=== PATIENT | male | born 1960 | race Caucasian/White ===

== ENCOUNTER 2025-01-02 21:10 | Observation (INO) | payer OTHER, SELFPAY ==
--- NOTE | ~2025-01-02 | XR_ITS ---
CLINICAL HISTORY: Fall, left knee pain R O fracture 2 view left knee Comparison: None Findings: No fractures or dislocations. Tricompartmental osteoarthritis. No joint effusion. No radiopaque foreign body. IMPRESSION: 1. No acute findings. This document has been electronically signed by: Teresa Turk MD on 01/02/2025 22:42:32
--- NOTE | ~2025-01-02 | XR_ITS ---
CLINICAL HISTORY: Fall, right knee to foot pain, R O fracture 2 view right tibia-fibula Comparison: None Findings No fractures or dislocations. No joint effusion. Osteoarthritis of the knee and tibiotalar joint. IMPRESSION: No acute fracture. This document has been electronically signed by: Teresa Turk MD on 01/02/2025 22:42:47
--- NOTE | ~2025-01-02 | XR_ITS ---
CLINICAL HISTORY: Fall, right foot pain, R O fracture 3 view right foot Comparison: None Findings: Bones intact. No dislocations. Large plantar calcaneal spur and Achilles enthesopathy. Soft tissue swelling over the metatarsals. IMPRESSION: 1. No acute osseous injury. This document has been electronically signed by: Teresa Turk MD on 01/02/2025 22:40:56
--- NOTE | ~2025-01-02 | XR_ITS ---
CLINICAL HISTORY: Fall down stairs case, right chest ecchymosis, R 0 --- Additional Notes or Special Instructions: Pneumothorax, rib fracture 1 view chest x-ray Comparison: None Findings: The lungs are clear. No large effusion or pneumothorax. Cardiomegaly. No acute fracture. IMPRESSION: 1. No acute cardiopulmonary findings. 2. Cardiomegaly. This document has been electronically signed by: Teresa Turk MD on 01/02/2025 22:37:11
--- NOTE | ~2025-01-02 | XR_ITS ---
EXAMINATION: XR RIBS, LEFT CLINICAL INFORMATION: fall, left side rib pain COMPARISON: None available. TECHNIQUE: PA chest, and 3 views of the left ribs were obtained. FINDINGS: There is cardiac enlargement. Widening of the vascular pedicle is likely secondary to technique and abundant mediastinal fat. The aorta is normal in contour with mural calcifications. Lungs demonstrate opacity in the left apex, not seen previously. There is minimal linear atelectasis or scarring in the left costophrenic sulcus. Lungs otherwise clear. There is no pneumothorax. Dedicated rib views demonstrate no definite displaced rib fracture. There are degenerative changes in the left shoulder joints and spine. XR/XR ribs LT min 3V w CXR1V IMPRESSION: 1. Cardiomegaly. 2. Opacity in the left apex, for which pneumonia is a consideration, among other etiologies. Follow-up imaging recommended to ensure resolution. 3. No pneumothorax or effusion. 4. No definite rib fracture or focal rib abnormality. Electronically signed by: Zay Nix MD 01/04/2025 01:41 PM EDT
--- NOTE | ~2025-01-02 | CT_ITS ---
CLINICAL HISTORY: Fall down spiral staircase, neck pain, rule out fr CT cervical spine without contrast Comparison: None Findings: Motion artifact in the lower cervical spine. Straightening of the cervical spine is likely positional. Bulky bridging anterior osteophytes from C4 through C7. Fusion of the C6 and C7 vertebral bodies. No acute fractures or dislocations. IMPRESSION: 1. No acute osseous injury. This document has been electronically signed by: Teresa Turk MD on 01/02/2025 22:44:57
--- NOTE | ~2025-01-02 | CT_ITS ---
CLINICAL HISTORY: Fall down spiral staircase, head injury, R O fract --- Additional Notes or Special Instructions: Bleed CT head without contrast Comparison: None Findings: No intra-axial mass, midline shift, hydrocephalus, or acute hemorrhage. Mild volume loss. Intracranial atherosclerosis. Mucosal thickening in the maxillary sinuses. The orbits are within normal limits. Left posterior scalp hematoma. No skull fracture. IMPRESSION: 1. No acute intracranial findings. 2. Left posterior scalp hematoma. This document has been electronically signed by: Teresa Turk MD on 01/02/2025 22:46:01
[2025-01-02 21:23] VITALS: BP 119/50; PULSE 111; RESP 16; TEMP 36.3; O2SAT 94
--- NOTE | 2025-01-02 21:25 | ED_ITS ---
HPI - Fall General Chief Complaint: Fall Stated Complaint: fall w/ headstrike, takes apirin Time Seen by Provider: 01/02/25 21:24 Source: patient Mode of arrival: EMS Limitations: no limitations History of Present Illness ED Provider: Dr. Patrick Reyna HPI Narrative: 64-year-old male with a history of diabetes mellitus, hyperlipidemia, atrial fibrillation-noncompliant with medications only takes aspirin, who presents emergency department for evaluation of trip and fall down a spiral staircase. Patient states that he has a wooden spiral staircase at home. He states he got to the top of the staircase and had difficulty lifting his leg which caused him to trip and fall backwards down the staircase. He states that he got residential down the staircase (a proximally 5 steps down) and then got stuck. He thinks that he hit his head and chest as well as his legs. He denied any loss of consciousness. Currently is denying headache or neck pain. He states that he was having pain from his right calf to his ankle which is constant in his 8/10. He also has left knee pain which is 4/10. The patient was [id number] used a saw to cut the struts off the stairway in order to free him from the staircase. The patient was then able to slide down to the bottom floor and was then brought to emergency department by ambulance. Patient states he was not stood up since the accident secondary to his lower extremity pain. Patient believes his last tetanus shot was greater than 5 years prior. States that he was not ill in any way prior to the slip and fall down the stairs. Related Data Home Medications ?Medication ?Instructions ?Recorded ?Confirmed No Known Home Meds 01/03/25 01/03/25 Allergies Allergy/AdvReac Type Severity Reaction Status Date / Time No Known Allergies Allergy Verified 01/02/25 21:36 Review of Systems 2 Review of Systems: Yes all other systems are reviewed and are negative PMFSH Past Medical History [facility] Narrative: Social history: The patient was in his is here in the emergency department with him. The patient denied tobacco use. He states that he drinks 5 shots of vodka per day and he last drank at 19:00 hours. He denies drug use. Medical History Diabetes mellitus Hyperlipidemia Hypertension Obesity Alcohol use disorder Social History Social History Household Members: Spouse Housing: Apartment Housing Other:: in law apartment Do you presently have visiting nurse or other home services: No Patient Tobacco Use Status: Former Tobacco user service: No Physical Exam 2 Vital Signs: Vital Signs: Last Vital Signs Temp 97.9 F 01/04/25 11:20 Pulse 104 H 01/04/25 11:20 Resp 20 01/04/25 11:20 BP 145/88 H 01/04/25 11:20 Pulse Ox 94 01/04/25 11:20 O2 Del Method Room Air 01/04/25 11:20 BMI result Body Mass Index 51.9 Vital signs revealed an elevated heart rate of 111 otherwise unremarkable Exam: General: Awake, alert in no distress, weight 173.6 kg, elevated BMI 51.9 kg per m2 Head: Normocephalic, atraumatic EENT: PERRL, Lids normal, sclera normal, conjunctiva normal, nose normal , ears normal, throat without erythema or exudates Neck: Supple, no adenopathy Lung: breath sounds symmetric, no wheezing, rales or rhonchi Chest: symmetric movement, ecchymosis to right anterior chest with minimal tenderness palpation of this area, Heart: regular rate and rhythm, normal S1, S2 no murmurs or rubs Abdomen: soft, non-tender, nondistended, normal bowel sounds Back: No tenderness with palpation of his lumbar vertebrae and no localizing point tenderness, he does have tenderness with palpation of the paraspinal muscles in the lumbar sacral area, no abrasions or ecchymosis noted Extremities: Patient has linear skin abrasions to his right lateral lower extremity from the knee to residential down the calf and similar skin abrasion to the left leg, log-rolling of the hips bilaterally reveal no discomfort, patient does have pain with palpation of his left knee with no obvious deformity and he also has pain with palpation over the right tib-fib area. Both extremities have chronic dermatitis/erythema with trace pitting edema symmetrically. Neuro: Awake, alert, oriented, normal speech, cranial nerves intact, moves all extremities symmetrically Psych: Pleasant, cooperative Medications Administered Generic Name Dose Route Start Last Admin Trade Name Freq PRN Reason Stop Dose Admin Cyclobenzaprine HCl 10 mg 01/03/25 21:00 01/03/25 20:14 Cyclobenzaprine Hcl 10 Mg Tablet PO 10 mg BEDTIME SHERLEY Administration Insulin Human Lispro 0 unit 01/03/25 07:30 01/04/25 11:42 Insulin Lispro 100 Unit/Ml 3 Ml Vial SUBCUT 2 unit QIDACHS [facility] Administration Protocol Metoprolol Succinate 25 mg 01/03/25 13:40 01/04/25 09:18 Metoprolol Succinate Er 25 Mg Tab.Er.24h PO 25 mg DAILY SHERLEY Administration Protocol Morphine Sulfate 2 mg 01/03/25 12:09 01/04/25 09:17 Morphine Sulfate 4 Mg/Ml Cartridge IVPUSH 2 mg Q4H PRN Administration Pain, Severe (Pain Scale 7-10) Protocol Oxycodone HCl 5 mg 01/03/25 05:50 01/04/25 11:41 Oxycodone Hcl Immed Release 5 Mg Tablet PO 5 mg Q6H [facility] Administration Sodium Chloride 3 ml 01/03/25 08:00 01/04/25 09:18 0.9 % Sodium Chloride Flush 3 Ml Syringe IVFLUSH 3 ml QSHIFT [facility] Administration Thiamine HCl 100 mg 01/03/25 09:00 01/04/25 09:18 Thiamine Hcl 100 Mg Tablet PO 100 mg DAILY [facility] Administration Discontinued Medications Generic Name Dose Route Start Last Admin Trade Name Alfonzoq PRN Reason Stop Dose Admin Cyclobenzaprine HCl 10 mg 01/03/25 01:42 01/03/25 01:54 Cyclobenzaprine Hcl 10 Mg Tablet PO 01/03/25 01:43 10 mg ONCE ONE Administration Diphtheria/Tetanus/Acell Pertussis 0.5 ml 01/02/25 21:53 01/02/25 22:25 Diphth,Pertus(Acell),Tet Adult 0.5 Ml Syringe IM 01/02/25 21:54 0.5 ml .ONCE ONE Administration Docusate Sodium 200 mg 01/03/25 20:08 01/03/25 20:14 Docusate Sodium 100 Mg Capsule PO 200 mg BEDTIME PRN Administration Constipation Hydromorphone HCl 1 mg 01/03/25 00:47 01/03/25 01:09 Hydromorphone Hcl 1 Mg/Ml Syringe IVPUSH 01/03/25 00:48 1 mg ONCE STA Administration Protocol Hydromorphone HCl 1 mg 01/03/25 01:42 01/03/25 01:54 Hydromorphone Hcl 1 Mg/Ml Syringe IVPUSH 01/03/25 01:43 1 mg ONCE STA Administration Protocol Hydromorphone HCl 1 mg 01/03/25 05:12 01/03/25 05:21 Hydromorphone Hcl 1 Mg/Ml Syringe IVPUSH 01/03/25 05:13 1 mg ONCE STA Administration Protocol Sodium Chloride 1,000 mls @ 999 mls/hr 01/02/25 21:59 01/03/25 00:11 Ns IV 01/02/25 22:59 Infused .Q1H1M STA Infusion Thiamine HCl 200 mg/ Sodium 102 mls @ 204 mls/hr 01/03/25 05:47 01/03/25 22:03 Chloride IV 01/03/25 06:16 Infused ONCE ONE Infusion Morphine Sulfate 4 mg 01/02/25 21:40 01/02/25 22:24 Morphine Sulfate 4 Mg/Ml Cartridge IVPUSH 01/02/25 21:41 4 mg ONCE STA Administration Protocol Morphine Sulfate 4 mg 01/03/25 00:07 01/03/25 00:12 Morphine Sulfate 4 Mg/Ml Cartridge IVPUSH 01/03/25 00:08 4 mg ONCE STA Administration Protocol Morphine Sulfate 4 mg 01/03/25 05:48 01/03/25 07:59 Morphine Sulfate 4 Mg/Ml Cartridge IVPUSH 4 mg Q4H PRN Administration Pain, Severe (Pain Scale 7-10) Protocol Ondansetron HCl 4 mg 01/03/25 01:46 01/03/25 01:54 Ondansetron Hcl 4 Mg/2 Ml Vial IVPUSH 01/03/25 01:47 4 mg ONCE ONE Administration Medical Decision Making Medical Decision Making MDM Narrative: 64-year-old male with a history of diabetes mellitus, hyperlipidemia, atrial fibrillation-noncompliant with medications only takes aspirin, who presents emergency department for evaluation of trip and fall down a spiral staircase at his home. Patient states that he tumbled down the stairs and got stuck mid way down, his [id number] had to cut the wooden struts in order to free him. Patient was then able to slide down to the bottom of the stairs. He denied loss of consciousness. He denied headache or neck pain. Patient he was only complaining of pain in his lower extremities. Vital signs revealed an elevated heart rate otherwise unremarkable. Exam did reveal ecchymosis to his right anterior chest with minimal tenderness palpation of this area, he had symmetric breath sounds bilaterally. Patient also has tenderness with palpation of the left knee and his right tib fib area. Does have abrasions to the skin on both lower extremities. Patient did not know in his last tetanus shot was given. Patient only takes aspirin in his not been compliant with his other medications. Differential diagnosis: ?Includes but is not limited to it was skull fracture, intracranial bleed, neck fracture, chest wall contusion, rib fractures, lower extremity fractures, anemia, electrolyte abnormalities, alcohol intoxication Course: 01:43 My independent interpretation patient's laboratory evaluation is as follows: CBC was normal except for low white blood count of 156, 000. Glucose elevated 164. Lactic acid elevated 3.5. LFTs were normal. Lipase was normal. Ethanol level elevated 203. CT scan of the head and cervical spine were negative. X-rays of the patient's right tib-fib and foot revealed no acute fractures. X-ray of the left knee revealed no acute fractures. One view chest x-ray revealed no obvious pneumothorax or hemothorax. Patient was treated with normal saline IV x1 L, morphine 4 mg IV x2 and Dilaudid 1 mg IV with no relief his pain. Patient states he was having increased back pain and persistent nausea, therefore he was ordered to get a another dose of Dilaudid 1 mg IV. I also ordered Zofran 4 mg IV and Flexeril 10 mg orally. Patient also received a Tdap vaccination IM. 05:15 hours The patient states he is feeling better and his pain is down to 7/10, he was requesting more pain medications therefore he was given Dilaudid 0.5 mg IV. Patient was able to stand however he was unable to take a step secondary to his pain. At this time I do not think that the patient has a vertebral fracture since he was no vertebral tenderness but does have right paraspinal muscle tenderness. Given the amount of pain medications that he was required I do not think that he can be discharged home and needs to be admitted for pain management. I will discuss admission with our covering hospitalist. 05:47 Patient was evaluated in the emergency department by Dr. Perez and he did accept the patient onto the hospitalist service for further management. Admission/Observation Consideration of admission/observation: Escalation of care including admission/observation considered (Yes) Consult Healthcare Provider Management of the patient was discussed with: Hospitalist Lab Data MDM Lab Attestation statement: I reviewed the patient's lab results. 01/04/25 09:47 01/04/25 09:47 Labs: Lab Results 01/02/25 01/02/25 01/03/25 Range/Units 21:27 21:48 00:16 WBC 9.0 (4.8-10.8) X10*3/uL RBC 4.17 L (4.60-5.80) X10*6/uL Hgb 14.2 (14.0-18.0) g/dl Hct 40.5 L (42.0-52.0) % MCV 97.1 (80.0-98.0) fL MCH 34.1 H (27.0-33.0) pg MCHC 35.1 (31.0-36.0) g/dl RDW 13.2 (11.0-16.0) % Plt Count 156 L (160-400) X10*3/uL MPV 9.1 L (9.4-12.4) fL Immature Gran % (Auto) 1.3 H (0.0-0.4) % Neut % (Auto) 80.0 H (45-73) % Lymph % (Auto) 12.4 L (20-40) % Island % (Auto) 4.7 (2-11) % Eos % (Auto) 1.3 (0-4) % Baso % (Auto) 0.3 (0-2) % Lymph # (Auto) 1.1 L (1.2-4.9) X10*3/uL Island # (Auto) 0.4 (0.1-1.2) X10*3/uL Eos # (Auto) 0.1 (0.0-0.4) X10*3/uL Baso # (Auto) 0.0 (0.0-0.2) X10*3/uL Abs Immat Gran (auto) 0.12 H (0.00-0.03) X10*3/uL Absolute Neuts (auto) 7.2 (2.0-8.3) x10*3/uL Absolute Nucleated RBC 0.000 (0.0-0.012) X10*3/uL Nucleated RBC % (auto) 0.0 (0.0-0.2) /100WBC APTT 27.3 (26.0-36.8) SEC Sodium 139 (135-145) mmol/L Potassium 4.8 (3.3-5.1) mmol/L Chloride 104 (96-108) mmol/L Carbon Dioxide 24 (22-29) mmol/L Anion Gap 16 (12-20) BUN 9 (9-16) mg/dL Creatinine 0.85 (0.5-1.4) mg/dL Estim Creat Clear Calc 140.2 Estimated GFR > 60 POC Glucose 157 H (60-115) mg/dL Random Glucose 164 H (60-115) mg/dL Lactic Acid 3.5 H* (0.5-2.0) mmol/L Lactic Acid F/U @ 2Hr 2.4 H* (0.5-2.0) mmol/L Lactic Acid F/U @ 4Hr (0.5-2.0) mmol/L Calcium 9.0 (8.4-10.2) mg/dL Magnesium 1.8 (1.6-2.6) mg/dL Total Bilirubin 0.5 (0.0-1.0) mg/dL AST 27 (5-37) U/L ALT 23 (0-40) U/L Alkaline Phosphatase 78 (39-117) U/L Total Creatine Kinase 169 (38-174) U/L Total Protein 6.4 L (6.5-8.0) g/dL Albumin 3.5 (3.5-5.0) g/dL Lipase 13 (8-78) U/L Ethyl Alcohol 203 mg/dL 01/03/25 Range/Units 03:09 WBC (4.8-10.8) X10*3/uL RBC (4.60-5.80) X10*6/uL Hgb (14.0-18.0) g/dl Hct (42.0-52.0) % MCV (80.0-98.0) fL MCH (27.0-33.0) pg MCHC (31.0-36.0) g/dl RDW (11.0-16.0) % Plt Count (160-400) X10*3/uL MPV (9.4-12.4) fL Immature Gran % (Auto) (0.0-0.4) % Neut % (Auto) (45-73) % Lymph % (Auto) (20-40) % Island % (Auto) (2-11) % Eos % (Auto) (0-4) % Baso % (Auto) (0-2) % Lymph # (Auto) (1.2-4.9) X10*3/uL Island # (Auto) (0.1-1.2) X10*3/uL Eos # (Auto) (0.0-0.4) X10*3/uL Baso # (Auto) (0.0-0.2) X10*3/uL Abs Immat Gran (auto) (0.00-0.03) X10*3/uL Absolute Neuts (auto) (2.0-8.3) x10*3/uL Absolute Nucleated RBC (0.0-0.012) X10*3/uL Nucleated RBC % (auto) (0.0-0.2) /100WBC APTT (26.0-36.8) SEC Sodium (135-145) mmol/L Potassium (3.3-5.1) mmol/L Chloride (96-108) mmol/L Carbon Dioxide (22-29) mmol/L Anion Gap (12-20) BUN (9-16) mg/dL Creatinine (0.5-1.4) mg/dL Estim Creat Clear Calc Estimated GFR POC Glucose (60-115) mg/dL Random Glucose (60-115) mg/dL Lactic Acid (0.5-2.0) mmol/L Lactic Acid F/U @ 2Hr (0.5-2.0) mmol/L Lactic Acid F/U @ 4Hr 2.2 H* (0.5-2.0) mmol/L Calcium (8.4-10.2) mg/dL Magnesium (1.6-2.6) mg/dL Total Bilirubin (0.0-1.0) mg/dL AST (5-37) U/L ALT (0-40) U/L Alkaline Phosphatase (39-117) U/L Total Creatine Kinase (38-174) U/L Total Protein (6.5-8.0) g/dL Albumin (3.5-5.0) g/dL Lipase (8-78) U/L Ethyl Alcohol mg/dL Independent Interpretation I performed an independent interpretation of an: EKG Interpretation: My interpretation patient's 12 EKG done in at 21:31 hours is as follows: Atrial fibrillation with a rate of 110, no ST segment elevation, no ST segment depression, no significant T-wave abnormalities, no PVCs My independent interpretation patient's x-rays and was as follows: Chest x-ray is as follows: No acute abnormalities, no obvious pneumothorax or hemothorax. Right tib fib: No acute fracture seen Right foot: No acute fracture seen Left knee: No acute fracture seen Radiology Impression Discussion of test interpretation with radiology: I have reviewed the radiologist's reading. Radiologist Impression: CT head without contrast IMPRESSION: 1. No acute intracranial findings. 2. Left posterior scalp hematoma. This document has been electronically signed by: Teresa Turk MD on 01/02/2025 22:46:01 2 view right tibia-fibula Comparison: None Findings No fractures or dislocations. No joint effusion. Osteoarthritis of the knee and tibiotalar joint. IMPRESSION: No acute fracture. This document has been electronically signed by: Teresa Turk MD on 01/02/2025 22:42:47 2 view left knee Comparison: None Findings: No fractures or dislocations. Tricompartmental osteoarthritis. No joint effusion. No radiopaque foreign body. IMPRESSION: 1. No acute findings. This document has been electronically signed by: Teresa Turk MD on 01/02/2025 22:42:32 3 view right foot Comparison: None Findings: Bones intact. No dislocations. Large plantar calcaneal spur and Achilles enthesopathy. Soft tissue swelling over the metatarsals. IMPRESSION: 1. No acute osseous injury. This document has been electronically signed by: Teresa Turk MD on 01/02/2025 22:40:56 1 view chest x-ray Comparison: None Findings: The lungs are clear. No large effusion or pneumothorax. Cardiomegaly. No acute fracture. IMPRESSION: 1. No acute cardiopulmonary findings. 2. Cardiomegaly. This document has been electronically signed by: Teresa Turk MD on 01/02/2025 22:37:11 Chronic Conditions Patient?s care impacted by: Diabetes, Hypertension and Other (Noncompliance with medications) Critical Care Time Critical Care Time Critical Care Time: Yes Total Critical Care Time: 45 Attestation: Critical Care: The patient was critically ill with a high probability of imminent or life threatening deterioration. I spent greater than 30 minutes of discontinuous time evaluating the patient,delivering critical care at the bedside, discussing and evaluating pertinent data with consultants. Critical care time does not include time spent performing separately billable procedures or teaching. Total time spent performing critical care was 45 minutes. Discharge Plan Discharge Clinical Impression: Fall down stairs, Closed head injury, Contusion of left lower extremity, Contusion of leg, right, Contusion of lower back Patient Disposition: Admitted As Inpatient Interventions: Admission Worksheet (ED) Last Done: 01/03/25 18:22 Discharge Date/Time: 01/03/25 19:04
--- NOTE | 2025-01-02 21:26 | ECG_ITS ---
Test Reason : FELL Blood Pressure : */* mmHG Vent. Rate : 111 BPM Atrial Rate : * BPM P-R Int : * ms QRS Dur : 116 ms QT Int : 318 ms P-R-T Axes : * -79 55 degrees QTcB Int : 432 ms Atrial fibrillation with rapid ventricular response Left axis deviation Incomplete right bundle branch block Inferior infarct , age undetermined Abnormal ECG No previous ECGs available Referred By: Patrick Reyna Electronically Signed By: Warner Brito
[2025-01-02 21:29] VITALS: BP 132/78; PULSE 92; O2SAT 96; BMI 51.9
[2025-01-02 21:54] LABS: MANUAL DIFF FLAG NO
[2025-01-02 21:56] LABS: Basophils Percent Auto 0.3 % (0-2); Eosinophils Absolute Auto 0.1 X10*3/uL (0.0-0.4); Eosinophils Percent Auto 1.3 % (0-4); Hematocrit 40.5 % (42.0-52.0); Hemoglobin 14.2 g/dl (14.0-18.0); Imm Gran Abs Auto 0.12 X10*3/uL (0.00-0.03); Imm Gran Pct Auto 1.3 % (0.0-0.4); Lymphocytes Absolute Auto 1.1 X10*3/uL (1.2-4.9); Lymphocytes Percent Auto 12.4 % (20-40); Mean Corpuscular HGB Conc 35.1 g/dl (31.0-36.0); Mean Corpuscular Hemoglobin 34.1 pg (27.0-33.0); Mean Corpuscular Volume 97.1 fL (80.0-98.0); Mean Platelet Volume 9.1 fL (9.4-12.4); Monocytes Absolute Auto 0.4 X10*3/uL (0.1-1.2); Monocytes Percent Auto 4.7 % (2-11); Neutrophils Absolute Auto 7.2 x10*3/uL (2.0-8.3); Platelet Count 156 X10*3/uL (160-400); Red Blood Count 4.17 X10*6/uL (4.60-5.80); Red Cell Distribution Width 13.2 % (11.0-16.0)
[2025-01-02 21:57] LABS: Glucose, Whole Blood 157 mg/dL (60-115)
[2025-01-02 22:00] VITALS: BP 121/72; PULSE 111; RESP 16; TEMP 36.6; O2SAT 94
[2025-01-02 22:04] LABS: Partial Thromboplastin Time 27.3 SEC (26.0-36.8)
[2025-01-02 22:09] LABS: Alanine Aminotransferase 23 U/L (0-40); Albumin Level 3.5 g/dL (3.5-5.0); Alkaline Phosphatase 78 U/L (39-117); Anion Gap 16 (12-20); Aspartate Amino Transferase 27 U/L (5-37); Bilirubin Total 0.5 mg/dL (0.0-1.0); Blood Urea Nitrogen 9 mg/dL (9-16); Carbon Dioxide 24 mmol/L (22-29); Chloride 104 mmol/L (96-108); Creatinine Clr Calc Pharmacy 140.2; Estimated Glomerular Filt Rate > 60; Ethanol 203 mg/dL; Glucose Random 164 mg/dL (60-115); Lipase 13 U/L (8-78); Magnesium 1.8 mg/dL (1.6-2.6); Potassium 4.8 mmol/L (3.3-5.1); Sodium 139 mmol/L (135-145); Total Protein 6.4 g/dL (6.5-8.0)
[2025-01-02 22:17] LABS: Lactic Acid 3.5 mmol/L (0.5-2.0)
[2025-01-02] MEDS: Morphine Sulfate 4 MG/ML CARTRIDGE IVPUSH (22:24)
[2025-01-02] MEDS: Diphth,Pertus(ACell),Tet Adult 0.5 ML SYRINGE IM (22:25)
[2025-01-02] MEDS: 0.9 % Sodium Chloride 1,000 ML 999 ML IV (22:26)
[2025-01-02 23:10] VITALS: BP 125/83; PULSE 111; RESP 16; TEMP 36.7; O2SAT 94
[2025-01-02 23:52] LABS: Reflex Lactate? Lactic Acid Added
[2025-01-03] MEDS: Morphine Sulfate 4 MG/ML CARTRIDGE IVPUSH ×2 (00:12→07:59)
[2025-01-03 00:43] LABS: ~Lactic Acid-LAB USE ONLY 2.4 mmol/L (0.5-2.0)
[2025-01-03] MEDS: HYDROmorphone HCl 1 MG/ML SYRINGE IVPUSH ×3 (01:09→05:21)
[2025-01-03] MEDS: Cyclobenzaprine HCl 10 MG TABLET PO ×2 (01:54→20:14)
[2025-01-03] MEDS: ondansetron HCL 4 MG/2 ML VIAL IVPUSH (01:54)
[2025-01-03 02:00] VITALS: BP 114/71; PULSE 100; RESP 14; TEMP 36.5; O2SAT 96
[2025-01-03 02:19] LABS: Reflex Lactate? 2 Y
[2025-01-03 03:35] LABS: ~Lactic Acid-LAB USE ONLY 2.2 mmol/L (0.5-2.0)
--- NOTE | 2025-01-03 05:51 | P.HPHOSP_ITS ---
History of Present Illness Date of Service: 01/03/25 Chief Complaint: Fall This is a 64-year-old male with pertinent history of hiu-pvigyxw-pkcvfgdcd diabetes mellitus, hypertension, mixed hyperlipidemia, alcohol use disorder, atrial fibrillation not on anticoagulation, noncompliant with medications who presents to the emergency department for evaluation after a fall. Patient states he missed a step and fell down a spiral staircase. Did not lose consciousness prior to the fall. No chest pain or palpitations prior to the fall. No dizziness or lightheadedness prior to the fall. No rhythmic jerking movement of extremities. Patient hit his head, chest and lower extremity due to the fall. Is reporting right ankle and left knee pain since the fall. States his nkzxbez-nq-bph use disorder cut off the stairway in order to get him out. Patient unable to stand due to lower extremity pain since the fall. Admits to drinking vodka every day but no history of alcohol withdrawal. Patient states he stopped taking his prescription home medications once he lost insurance. Patient was self paying for his insurance and missed a payment. Patient previously was on simvastatin, antihypertensives, anticoagulation for AFib, Mounjaro and other non-insulin antihyperglycemics (which he does not remember) for diabetes. Currently he is not taking any prescription home medications. Denies fever, chills, palpitations, shortness of breath, abdominal pain, changes in urinary or bowel habits. In the emergency department, imaging without acute fracture or osseous injury. Review of Systems 2 Constitutional: Constitutional: Reports fatigue, Reports malaise and Reports weakness Cardiovascular: Cardiovascular: Reports no additional cardiovascular complaints Gastrointestinal: Gastrointestinal: Reports no additional gastrointestinal complaints Genitourinary: Genitourinary: Reports no additional male genitourinary complaints Musculoskeletal: Musculoskeletal: Reports arthralgias Neurologic: Reports weakness Endocrine: Endocrine: Reports fatigue [facility] Medical History Diabetes mellitus Hyperlipidemia Hypertension Obesity Alcohol use disorder Pertinent family history: No family history of early CAD Social History Advance Directives: No Advance Directives Information Provided: Yes Do you have a plan to hurt others: No Plan Meds Allergies Allergy/AdvReac Type Severity Reaction Status Date / Time No Known Allergies Allergy Verified 01/02/25 21:36 Physical Exam 2 Vital Signs and Narrative: Vital Signs: Last Vital Signs Temp 97.7 F 01/03/25 02:00 Pulse 100 01/03/25 02:00 Resp 14 01/03/25 02:00 BP 114/71 01/03/25 02:00 Pulse Ox 96 01/03/25 02:00 O2 Del Method Room Air 01/03/25 02:00 BMI result Body Mass Index 51.9 Middle-aged obese male lying in bed in no distress Neck supple, no JVD Regular rate and rhythm, S1-S2 heard Ecchymosis over chest, Decreased breath sounds at bases, can not appreciate wheezing or crackles Abdomen soft nontender, no guarding, no rigidity Patient is awake, alert and oriented to self, place, time and person ; no focal motor deficit Psych: Normal mood No vertebral tenderness ; right paraspinal tenderness present Right lower extremity skin abrasion with area of palpation over right ankle Results Labs 01/02/25 21:48 01/02/25 21:48 Labs: Laboratory Results - last 24 hr 01/02/25 01/02/25 01/03/25 21:27 21:48 00:16 MCV 97.1 MCH 34.1 H MCHC 35.1 RDW 13.2 Plt Count 156 L MPV 9.1 L Immature Gran % (Auto) 1.3 H Neut % (Auto) 80.0 H Lymph % (Auto) 12.4 L [place] % (Auto) 4.7 Eos % (Auto) 1.3 Baso % (Auto) 0.3 Lymph # (Auto) 1.1 L [place] # (Auto) 0.4 Eos # (Auto) 0.1 Baso # (Auto) 0.0 Abs Immat Gran (auto) 0.12 H Absolute Neuts (auto) 7.2 Absolute Nucleated RBC 0.000 Nucleated RBC % (auto) 0.0 APTT 27.3 Anion Gap 16 Estim Creat Clear Calc 140.2 Estimated GFR > 60 POC Glucose 157 H Random Glucose 164 H Lactic Acid 3.5 H* Lactic Acid F/U @ 2Hr 2.4 H* Lactic Acid F/U @ 4Hr Calcium 9.0 Magnesium 1.8 Total Bilirubin 0.5 AST 27 ALT 23 Alkaline Phosphatase 78 Total Creatine Kinase 169 Total Protein 6.4 L Albumin 3.5 Lipase 13 Ethyl Alcohol 203 01/03/25 03:09 MCV MCH MCHC RDW Plt Count MPV Immature Gran % (Auto) Neut % (Auto) Lymph % (Auto) [place] % (Auto) Eos % (Auto) Baso % (Auto) Lymph # (Auto) [place] # (Auto) Eos # (Auto) Baso # (Auto) Abs Immat Gran (auto) Absolute Neuts (auto) Absolute Nucleated RBC Nucleated RBC % (auto) APTT Anion Gap Estim Creat Clear Calc Estimated GFR POC Glucose Random Glucose Lactic Acid Lactic Acid F/U @ 2Hr Lactic Acid F/U @ 4Hr 2.2 H* Calcium Magnesium Total Bilirubin AST ALT Alkaline Phosphatase Total Creatine Kinase Total Protein Albumin Lipase Ethyl Alcohol Assessment and Plan (1) Contusion of leg, right: Qualifiers: Encounter type: initial encounter Qualified Code(s): S80.11XA - Contusion of right lower leg, initial encounter Status: Acute (2) Contusion of left lower extremity: Qualifiers: Encounter type: initial encounter Qualified Code(s): S80.12XA - Contusion of left lower leg, initial encounter Status: Acute (3) Closed head injury: Qualifiers: Encounter type: initial encounter Qualified Code(s): S09.90XA - Unspecified injury of head, initial encounter Status: Acute (4) Fall down stairs: Qualifiers: Encounter type: initial encounter Qualified Code(s): W10.8XXA - Fall (on) (from) other stairs and steps, initial encounter Status: Acute (5) Contusion of lower back: Qualifiers: Encounter type: initial encounter Qualified Code(s): S30.0XXA - Contusion of lower back and pelvis, initial encounter Status: Acute Plan This is a 64-year-old male with pertinent history of pwv-uguejmp-qgcsbftur diabetes mellitus, hypertension, mixed hyperlipidemia, alcohol use disorder, atrial fibrillation not on anticoagulation, noncompliant with medications who presents to the emergency department for evaluation after a fall. #. Intractable extremity pain due to mechanical fall: Will admit patient for observation with scheduled and p.r.n. opioids. Consulting Physical therapy to evaluate and treat. Ankle x-ray pending #. Alcohol use disorder: No history or concern of alcohol withdrawal as per the patient. Monitor CIWA. Initiating thiamine. Consulting Addiction Team #. Acute lactic acidosis due to alcohol use. No sepsis #. Hypertension: Previously on antihypertensives. Monitor and initiate appropriately #. Mixed hyperlipidemia: Stopped taking statin #. AFib: Was previously on anticoagulation. Chads Vasc score 3. Holding off on initiating anticoagulation due to posterior scalp hematoma. Not on SA gayla blocking agents #. Vbi-wmgovwc-egwfyuudn diabetes mellitus: Patient states he was on Mounjaro and other non-insulin antihyperglycemics (does not remember) until he lost his insurance. Obtaining A1c. Initiating Accu-Cheks with sliding scale insulin #. Super morbid Obesity: Counseled regarding diet and exercise DVT prophylaxis: Mechanical Full code Quality Stroke Does the patient have a stroke diagnosis?: No VTE Prior VTE?: No VTE Risk Level:: Medical - moderate - high VTE Device Contraindication: N/A - Device Ordered VTE Drug Contraindication: Treatment Not Indicated
[2025-01-03 06:14] VITALS: BP 123/74; PULSE 110; RESP 15; TEMP 36.5; O2SAT 94
[2025-01-03] MEDS: oxyCODONE HCl Immed Release 5 MG TABLET PO ×4 (06:45→23:27)
[2025-01-03] MEDS: Thiamine HCL 200 MG in 0.9 % Sodium Chloride 100 ML 204 MG IV (06:45)
[2025-01-03 07:22] LABS: Glucose, Whole Blood 181 mg/dL (60-115)
[2025-01-03] MEDS: Insulin Lispro 100 UNIT/ML 3 ML VIAL SUBCUT ×3 (07:51→21:12)
[2025-01-03] MEDS: 0.9 % Sodium Chloride Flush 3 ML SYRINGE IVFLUSH ×3 (07:54→20:15)
[2025-01-03] MEDS: Thiamine HCL 100 MG TABLET PO (07:55)
[2025-01-03 08:19] VITALS: BP 141/90; PULSE 101; RESP 12; O2SAT 96
--- NOTE | 2025-01-03 08:44 | PHA.MEDREC ---
Pharmacy Consult ? Medication Reconciliation Pharmacy has completed the medication reconciliation. Pt reports to both provider and [facility] that he is taking no medications at home due to lapse in insurance. He had previously been on metformin and lorazepam to his best recollection but no information on dosing and when last taken. When PDMP checked, lorazepam was last filled in 2022.
[2025-01-03 08:54] LABS: Appearance Urine Clear; Color Urine Yellow; Glucose Urine UA 100 mg/dL (Negative); Leukocyte Esterase Urine Negative (Negative); Nitrite Urine Negative (Negative); PH 5.5 (5.0-9.0); Urine Blood Negative (Negative); Urine Ketones 40 mg/dL (Negative); Urine Protein Negative (Neg-Trace)
[2025-01-03 09:02] VITALS: BMI 51.5
[2025-01-03 09:05] LABS: Estimated Average Glucose 143 mg/dL; Hemoglobin A1C 175.9627 umol/L; Hemoglobin A1c % 6.6 % (<6.0); Total Hemoglobin (HGBA1C) 3653.3075 umol/L
[2025-01-03 12:12] LABS: Glucose, Whole Blood 160 mg/dL (60-115)
--- NOTE | 2025-01-03 13:08 | MHC.CM.PN ---
PT FROM HOME WITH NO SERVICES WALKER, CANE NO LONGER ACTIVE WITH PCP NO HCP, BUT DNR ACCORDING TO PT. OBS NOTICE EXPLAINED AND DELIVERED DCP- HOME SELF CARE VIA PRIVATE TRANSPORT
--- NOTE | 2025-01-03 14:00 | PC.NURSE ---
This is a 64-year-old male with pertinent history of qns-cbotvtw-kugyuaoyn diabetes mellitus, hypertension, mixed hyperlipidemia, alcohol use disorder, atrial fibrillation not on anticoagulation, noncompliant with medications who presents to the emergency department for evaluation after a fall. Patient states he missed a step and fell down a spiral staircase. Did not lose consciousness prior to the fall. No chest pain or palpitations prior to the fall. No dizziness or lightheadedness prior to the fall. No rhythmic jerking movement of extremities. Patient hit his head, chest and lower extremity due to the fall. Is reporting right ankle and left knee pain since the fall. States his ksgdcia-wn-lio had to cut off the stairway in order to get him out. Patient unable to stand due to lower extremity pain since the fall. Admits to drinking vodka every day but no history of alcohol withdrawal. Patient states he stopped taking his prescription home medications once he lost insurance. Patient alert and oriented. Morbidly obese. Respirations even and non-labored. Abdomen large, soft with positive bowel sounds. LE edema noted.
[2025-01-03] MEDS: Metoprolol Succinate ER 25 MG TAB.ER.24H PO (15:44)
[2025-01-03 16:00] VITALS: BP 170/93; PULSE 116; RESP 18; TEMP 36.6; O2SAT 99
[2025-01-03] MEDS: Morphine Sulfate 4 MG/ML CARTRIDGE 2 MG IVPUSH ×2 (16:20→20:14)
[2025-01-03 16:21] LABS: Glucose, Whole Blood 149 mg/dL (60-115)
--- NOTE | 2025-01-03 16:41 | PM.EVENT ---
Event Note Date of Service: 01/03/25 Event Note: Addiction consult placed for patient reporting drinking daily Attempted to meet with lisa mckenna room 9 of main ED Patient verbalizing pain and discomfort Denies any alcohol withdrawal sx and stating I am just really uncomfortable right now ETOH level 203 last evening tachycardic and hypertensive since presenting to ED --no diaphoresis or tremor noted Plan: -CIWA in place -will follow up in AM -encouraged patient to report any sx to RN --anxiety, GI upset, tremor, headache, etc. Time Spent With Patient Time: Total time managing care of this patient today _10___ minutes.
--- NOTE | 2025-01-03 17:02 | PM.EVENT ---
Event Note Date of Service: 01/03/25 Event Note: Seen and examined this morning Follow-up for fall, intractable pain Patient reports pain right inner ankle, left knee Small bruise noted to right ankle, abrasion to left knee. Able to move all 4 extremities This is a 64-year-old male with pertinent history of etr-ilajmvq-kobtokydw diabetes mellitus, hypertension, mixed hyperlipidemia, alcohol use disorder, atrial fibrillation not on anticoagulation, noncompliant with medications who presents to the emergency department for evaluation after a fall. Intractable extremity pain due to mechanical fall: Will admit patient for observation with scheduled and p.r.n. opioids. all imaging negative seen by Physical therapy - [facility] with services Alcohol use disorder: No history or concern of alcohol withdrawal as per the patient. CIWA remains low, does not appear to be in alcohol withdrawal Initiating thiamine. Addiction Team ocntult Acute lactic acidosis due to alcohol use. No sepsis Hypertension: Previously on antihypertensives. Monitor and initiate appropriately Mixed hyperlipidemia: Stopped taking statin Atrial fibrillation with rapid ventricular response Was previously on anticoagulation. Chads Vasc score 3. - will hold off on initiating anticoagulation due to posterior scalp hematoma, daily etoh use and unsteady gait, admission for fall was previously on metoprolol, will resume previous dose monitor HR Gbe-uwjprqi-nyflnlchl diabetes mellitus: Patient states he was on Mounjaro and other non-insulin antihyperglycemics (does not remember) until he lost his insurance A1c 6.6 Initiating Accu-Cheks with sliding scale insulin Super morbid Obesity: BMI 51.9 Counseled regarding diet and exercise Time Spent With Patient Time: Total time managing care of this patient today ____ minutes.
[2025-01-03 20:00] VITALS: BP 145/86; PULSE 113; RESP 18; TEMP 36; O2SAT 94
[2025-01-03] MEDS: Docusate Sodium 100 MG CAPSULE 200 MG PO (20:14)
[2025-01-03 20:45] LABS: Glucose, Whole Blood 220 mg/dL (60-115)
[2025-01-03 23:11] VITALS: BP 139/78; PULSE 74; RESP 20; TEMP 36.8; O2SAT 93
[2025-01-04] VITALS (8 sets, daily range): BP systolic 130–171; BP diastolic 66–88; PULSE 80–104; RESP 14–20; TEMP 36.4–36.9; O2SAT 93–95
[2025-01-04] MEDS: Morphine Sulfate 4 MG/ML CARTRIDGE 2 MG IVPUSH ×4 (02:54→18:16)
[2025-01-04] MEDS: oxyCODONE HCl Immed Release 5 MG TABLET PO ×4 (05:57→23:16)
[2025-01-04 07:24] LABS: Glucose, Whole Blood 158 mg/dL (60-115)
[2025-01-04] MEDS: 0.9 % Sodium Chloride Flush 3 ML SYRINGE IVFLUSH ×2 (09:18→23:19)
[2025-01-04] MEDS: Thiamine HCL 100 MG TABLET PO (09:18)
[2025-01-04] MEDS: Metoprolol Succinate ER 25 MG TAB.ER.24H PO (09:18)
[2025-01-04] MEDS: Insulin Lispro 100 UNIT/ML 3 ML VIAL SUBCUT ×3 (09:18→21:16)
[2025-01-04 10:06] LABS: Hematocrit 39.6 % (42.0-52.0); Hemoglobin 13.4 g/dl (14.0-18.0); Mean Corpuscular HGB Conc 33.8 g/dl (31.0-36.0); Mean Corpuscular Volume 100.5 fL (80.0-98.0); Mean Platelet Volume 9.1 fL (9.4-12.4); Platelet Count 137 X10*3/uL (160-400); Red Blood Count 3.94 X10*6/uL (4.60-5.80); Red Cell Distribution Width 13.5 % (11.0-16.0)
[2025-01-04 10:26] LABS: Anion Gap 10 (12-20); Blood Urea Nitrogen 11 mg/dL (9-16); Calcium 9.1 mg/dL (8.4-10.2); Carbon Dioxide 30 mmol/L (22-29); Chloride 102 mmol/L (96-108); Creatinine Clr Calc Pharmacy 158.3; Estimated Glomerular Filt Rate > 60; Glucose Random 182 mg/dL (60-115); Potassium 5.1 mmol/L (3.3-5.1); Sodium 137 mmol/L (135-145)
[2025-01-04 11:10] LABS: Glucose, Whole Blood 167 mg/dL (60-115)
--- NOTE | 2025-01-04 14:24 | HO.ADDICT_ITS ---
History of Present Illness Date of Service: 01/04/2025 Chief Complaint: Fall Reason for Consult: alcohol use Sources of Information: patient interviewed and chart reviewed HPI Narrative: Patient is a 64 year old male who presented [facility] ED after a fall. +AUDIT C screen Met with patient very briefly who politely declined brief intervention States he drinks 4 vodka sodas a day and has not found that it is negatively impacting his life. He also stated that if he finds he needs to cut down, he has many friends who are in recovery and can help him . Has not been scoring on CIWA and denies any withdrawal sx Appearing comfortable at time of interview --no diaphoresis, restlessness or tremor noted. Medical Evaluation Reviewed: Yes Review of Systems Constitutional: Reports as per HPI Comments: discomfort r/t fall Diagnostics Vital Signs (24Hr): Vital Signs - 24 hr 01/03/25 16:00 01/03/25 20:00 01/03/25 23:11 Temperature 97.9 F 96.8 F 98.2 F Pulse Rate 116 H 113 H 74 Respiratory Rate 18 18 20 Blood Pressure 170/93 H 145/86 H 139/78 Pulse Oximetry 99 94 93 Oxygen Delivery Method Room Air Room Air Room Air 01/04/25 03:29 01/04/25 07:45 01/04/25 11:20 Temperature 97.9 F 98.5 F 97.9 F Pulse Rate 94 99 104 H Respiratory Rate 18 20 20 Blood Pressure 130/66 146/85 H 145/88 H Pulse Oximetry 94 95 94 Oxygen Delivery Method Room Air Room Air Room Air BMI result Body Mass Index 51.5 Labs 01/04/25 09:47 01/04/25 09:47 Labs: Laboratory Results - last 48 hr 01/02/25 01/02/25 01/03/25 21:27 21:48 00:16 WBC 9.0 RBC 4.17 L Hgb 14.2 Hct 40.5 L MCV 97.1 MCH 34.1 H MCHC 35.1 RDW 13.2 Plt Count 156 L MPV 9.1 L Immature Gran % (Auto) 1.3 H Neut % (Auto) 80.0 H Lymph % (Auto) 12.4 L [place] % (Auto) 4.7 Eos % (Auto) 1.3 Baso % (Auto) 0.3 Lymph # (Auto) 1.1 L [place] # (Auto) 0.4 Eos # (Auto) 0.1 Baso # (Auto) 0.0 Abs Immat Gran (auto) 0.12 H Absolute Neuts (auto) 7.2 Absolute Nucleated RBC 0.000 Nucleated RBC % (auto) 0.0 APTT 27.3 Sodium 139 Potassium 4.8 Chloride 104 Carbon Dioxide 24 Anion Gap 16 BUN 9 Creatinine 0.85 Estim Creat Clear Calc 140.2 Estimated GFR > 60 POC Glucose 157 H Random Glucose 164 H Estimat Average Glucose Hemoglobin A1c % Lactic Acid 3.5 H* Lactic Acid F/U @ 2Hr 2.4 H* Lactic Acid F/U @ 4Hr Calcium 9.0 Magnesium 1.8 Total Bilirubin 0.5 AST 27 ALT 23 Alkaline Phosphatase 78 Total Creatine Kinase 169 Total Protein 6.4 L Albumin 3.5 Lipase 13 Urine Color Urine Appearance Urine pH Ur Specific [place] Urine Protein Urine Glucose (UA) Urine Ketones Urine Blood Urine Nitrite Ur Leukocyte Esterase Ethyl Alcohol 203 01/03/25 01/03/25 01/03/25 03:09 07:18 08:48 WBC RBC Hgb Hct MCV MCH MCHC RDW Plt Count MPV Immature Gran % (Auto) Neut % (Auto) Lymph % (Auto) [place] % (Auto) Eos % (Auto) Baso % (Auto) Lymph # (Auto) [place] # (Auto) Eos # (Auto) Baso # (Auto) Abs Immat Gran (auto) Absolute Neuts (auto) Absolute Nucleated RBC Nucleated RBC % (auto) APTT Sodium Potassium Chloride Carbon Dioxide Anion Gap BUN Creatinine Estim Creat Clear Calc Estimated GFR POC Glucose 181 H Random Glucose Estimat Average Glucose 143 Hemoglobin A1c % 6.6 H Lactic Acid Lactic Acid F/U @ 2Hr Lactic Acid F/U @ 4Hr 2.2 H* Calcium Magnesium Total Bilirubin AST ALT Alkaline Phosphatase Total Creatine Kinase Total Protein Albumin Lipase Urine Color Yellow Urine Appearance Clear Urine pH 5.5 Ur Specific [place] 1.010 Urine Protein Negative Urine Glucose (UA) 100 H Urine Ketones 40 Urine Blood Negative Urine Nitrite Negative Ur Leukocyte Esterase Negative Ethyl Alcohol 01/03/25 01/03/25 01/03/25 12:08 16:18 20:41 WBC RBC Hgb Hct MCV MCH MCHC RDW Plt Count MPV Immature Gran % (Auto) Neut % (Auto) Lymph % (Auto) [place] % (Auto) Eos % (Auto) Baso % (Auto) Lymph # (Auto) [place] # (Auto) Eos # (Auto) Baso # (Auto) Abs Immat Gran (auto) Absolute Neuts (auto) Absolute Nucleated RBC Nucleated RBC % (auto) APTT Sodium Potassium Chloride Carbon Dioxide Anion Gap BUN Creatinine Estim Creat Clear Calc Estimated GFR POC Glucose 160 H 149 H 220 H Random Glucose Estimat Average Glucose Hemoglobin A1c % Lactic Acid Lactic Acid F/U @ 2Hr Lactic Acid F/U @ 4Hr Calcium Magnesium Total Bilirubin AST ALT Alkaline Phosphatase Total Creatine Kinase Total Protein Albumin Lipase Urine Color Urine Appearance Urine pH Ur Specific [place] Urine Protein Urine Glucose (UA) Urine Ketones Urine Blood Urine Nitrite Ur Leukocyte Esterase Ethyl Alcohol 01/04/25 01/04/25 01/04/25 07:19 09:47 11:06 WBC 7.0 RBC 3.94 L Hgb 13.4 L Hct 39.6 L MCV 100.5 H MCH 34.0 H MCHC 33.8 RDW 13.5 Plt Count 137 L MPV 9.1 L Immature Gran % (Auto) Neut % (Auto) Lymph % (Auto) [place] % (Auto) Eos % (Auto) Baso % (Auto) Lymph # (Auto) [place] # (Auto) Eos # (Auto) Baso # (Auto) Abs Immat Gran (auto) Absolute Neuts (auto) Absolute Nucleated RBC 0.000 Nucleated RBC % (auto) 0.0 APTT Sodium 137 Potassium 5.1 Chloride 102 Carbon Dioxide 30 H Anion Gap 10 L BUN 11 Creatinine 0.75 Estim Creat Clear Calc 158.3 Estimated GFR > 60 POC Glucose 158 H 167 H Random Glucose 182 H Estimat Average Glucose Hemoglobin A1c % Lactic Acid Lactic Acid F/U @ 2Hr Lactic Acid F/U @ 4Hr Calcium 9.1 Magnesium Total Bilirubin AST ALT Alkaline Phosphatase Total Creatine Kinase Total Protein Albumin Lipase Urine Color Urine Appearance Urine pH Ur Specific [place] Urine Protein Urine Glucose (UA) Urine Ketones Urine Blood Urine Nitrite Ur Leukocyte Esterase Ethyl Alcohol Imaging Radiology Impressions: ITS Impressions Ribs X-Ray 01/04/25 13:00 IMPRESSION: 1. Cardiomegaly. 2. Opacity in the left apex, for which pneumonia is a consideration, among other etiologies. Follow-up imaging recommended to ensure resolution. 3. No pneumothorax or effusion. 4. No definite rib fracture or focal rib abnormality. Electronically signed by: Zay Nix MD 01/04/2025 01:41 PM EDT Mental Status Exam Mental Status Exam Patient Appearance: Appropriate Level of Consciousness: Awake, Appropriate and Alert Patient Behavior: Appropriate Affect Description: Calm Speech Pattern: Clear Medications Medications Current Medications Acetaminophen (Acetaminophen 325 Mg Tablet) 650 mg PO Q6H PRN PRN Reason: Pain, Mild 1-3,fever,headache Calcium Carbonate (Calcium Carbonate 750 Mg Tab.Chew) 750 mg PO Q4H PRN PRN Reason: Heartburn Cyclobenzaprine HCl (Cyclobenzaprine Hcl 10 Mg Tablet) 10 mg PO BEDTIME [facility] Last Admin: 01/03/25 20:14 Dose: 10 mg Dextrose (Dextrose 50 % 25 Gm/50 Ml Syringe) 25 gm IVPUSH Q15M PRN; Protocol PRN Reason: per Hypoglycemia Standing Ord. Docusate Sodium (Docusate Sodium 100 Mg Capsule) 200 mg PO BEDTIME [facility] Folic Acid (Folic Acid 1 Mg Tablet) 1 mg PO DAILY [facility] Glucose (Glucose Gel 15 Gm Gel..Gram.) 15 gm PO Q15M PRN; Protocol PRN Reason: per Hypoglycemia Standing Ord. Insulin Human Lispro (Insulin Lispro 100 Unit/Ml 3 Ml Vial) 0 unit SUBCUT QIDACHS [facility]; Protocol Last Admin: 01/04/25 11:42 Dose: 2 unit Magnesium Hydroxide (Milk Of Magnesia 30 Ml Oral.Susp) 30 ml PO DAILY PRN PRN Reason: Constipation Melatonin (Melatonin 3 Mg Tablet) 6 mg PO BEDTIME PRN PRN Reason: Insomnia Metoprolol Succinate (Metoprolol Succinate Er 25 Mg Tab.Er.24h) 25 mg PO DAILY [facility]; Protocol Last Admin: 01/04/25 09:18 Dose: 25 mg Morphine Sulfate (Morphine Sulfate 4 Mg/Ml Cartridge) 2 mg IVPUSH Q4H PRN; Protocol PRN Reason: Pain, Severe (Pain Scale 7-10) Last Admin: 01/04/25 13:47 Dose: 2 mg Ondansetron HCl (Ondansetron Hcl 4 Mg/2 Ml Vial) 4 mg IVPUSH Q8H PRN PRN Reason: Nausea and Vomiting Oxycodone HCl (Oxycodone Hcl Immed Release 5 Mg Tablet) 5 mg PO Q6H [facility] Last Admin: 01/04/25 11:41 Dose: 5 mg Senna (Sennosides 8.6 Mg Tablet) 8.6 mg PO DAILY PRN PRN Reason: Constipation Sodium Chloride (0.9 % Sodium Chloride Flush 3 Ml Syringe) 3 ml IVFLUSH QSHIFT [facility] Last Admin: 01/04/25 09:18 Dose: 3 ml Thiamine HCl (Thiamine Hcl 100 Mg Tablet) 100 mg PO DAILY [facility] Last Admin: 01/04/25 09:18 Dose: 100 mg Allergies Allergies Allergy/AdvReac Type Severity Reaction Status Date / Time No Known Allergies Allergy Verified 01/02/25 21:36 Assessment & Plan Assessment & Plan (1) Alcohol use disorder: Status: Acute Code(s): F10.90 - Alcohol use, unspecified, uncomplicated Assessment and Plan: * declines BI, including medications for AUD or referral for treatment of AUD Total time managing care of this patient today __15__ minutes. [facility] Past Medical History Medical History Diabetes mellitus Hyperlipidemia Hypertension Obesity Alcohol use disorder Social History Social History Household Members: Spouse Housing: Apartment Housing Other:: in law apartment Do you presently have visiting nurse or other home services: No Patient Tobacco Use Status: Former Tobacco user service: No
[2025-01-04 16:07] LABS: Glucose, Whole Blood 144 mg/dL (60-115)
--- NOTE | 2025-01-04 16:16 | MHC.CM.PN ---
ANTIC PT WILL DC HOME SELF CARE LATER TODAY VS OVER W/E, PT HAS NO PCP THEREFORE DOES NOT QUALIFY FOR HOME SERVICES, PT WILL ARRANGE TRANSPORT.
--- NOTE | 2025-01-04 17:32 | P.PNIM_ITS ---
Subjective Subjective Date of Service: 01/04/25 Interval History: Seen and examined this morning Follow-up for mechanical fall Still reporting generalized body pain This morning reporting left-sided rib pain and intermittent dry cough. Denies fever, denies shortness of breath Minimal ambulation Review of Systems Review of Systems: Yes all other systems are reviewed and are negative Constitutional Constitutional: Denies chills and Denies fever(s) Physical Exam 2 Vital Signs: Vital Signs: Last Vital Signs Temp 98 F 01/04/25 15:19 Pulse 97 01/04/25 15:19 Resp 14 01/04/25 15:19 BP 163/85 H 01/04/25 15:19 Pulse Ox 94 01/04/25 15:19 O2 Del Method Room Air 01/04/25 15:19 BMI result Body Mass Index 51.5 Const: General: alert and awake Nutritional Appearance: obese O rientation/consciousness: patient oriented x3 Resp: Effort & Inspection: normal respiratory effort, able to speak in complete sentences, no respiratory distress and no use of accessory muscles Cardio: Rate: regular rate GI: Inspection: No distended Palpation (GI): Soft to palpation Neuro: General: patient oriented x3, moves all extremities and CN's II-XI intact bilaterally Objective Data Active Medications Acetaminophen (Acetaminophen 325 Mg Tablet) 650 mg PO Q6H PRN PRN Reason: Pain, Mild 1-3,fever,headache Calcium Carbonate (Calcium Carbonate 750 Mg Tab.Chew) 750 mg PO Q4H PRN PRN Reason: Heartburn Cyclobenzaprine HCl (Cyclobenzaprine Hcl 10 Mg Tablet) 10 mg PO BEDTIME [facility] Last Admin: 01/03/25 20:14 Dose: 10 mg Documented By: GILMA Dextrose (Dextrose 50 % 25 Gm/50 Ml Syringe) 25 gm IVPUSH Q15M PRN; Protocol PRN Reason: per Hypoglycemia Standing Ord. Docusate Sodium (Docusate Sodium 100 Mg Capsule) 200 mg PO BEDTIME [facility] Folic Acid (Folic Acid 1 Mg Tablet) 1 mg PO DAILY [facility] Glucose (Glucose Gel 15 Gm Gel..Gram.) 15 gm PO Q15M PRN; Protocol PRN Reason: per Hypoglycemia Standing Ord. Insulin Human Lispro (Insulin Lispro 100 Unit/Ml 3 Ml Vial) 0 unit SUBCUT QIDACHS [facility]; Protocol Last Admin: 01/04/25 16:09 Dose: Not Given Documented By: FLEX Non-Admin Reason: No Insulin Coverage Magnesium Hydroxide (Milk Of Magnesia 30 Ml Oral.Susp) 30 ml PO DAILY PRN PRN Reason: Constipation Melatonin (Melatonin 3 Mg Tablet) 6 mg PO BEDTIME PRN PRN Reason: Insomnia Metoprolol Succinate (Metoprolol Succinate Er 25 Mg Tab.Er.24h) 25 mg PO DAILY [facility]; Protocol Last Admin: 01/04/25 09:18 Dose: 25 mg Documented By: FLEX Morphine Sulfate (Morphine Sulfate 4 Mg/Ml Cartridge) 2 mg IVPUSH Q4H PRN; Protocol PRN Reason: Pain, Severe (Pain Scale 7-10) Last Admin: 01/04/25 13:47 Dose: 2 mg Documented By: FLEX Ondansetron HCl (Ondansetron Hcl 4 Mg/2 Ml Vial) 4 mg IVPUSH Q8H PRN PRN Reason: Nausea and Vomiting Oxycodone HCl (Oxycodone Hcl Immed Release 5 Mg Tablet) 5 mg PO Q6H [facility] Last Admin: 01/04/25 11:41 Dose: 5 mg Documented By: FLEX Senna (Sennosides 8.6 Mg Tablet) 8.6 mg PO DAILY PRN PRN Reason: Constipation Sodium Chloride (0.9 % Sodium Chloride Flush 3 Ml Syringe) 3 ml IVFLUSH QSHIFT [facility] Last Admin: 01/04/25 16:09 Dose: Not Given Documented By: FLEX Non-Admin Reason: Med already given w/ morphine Thiamine HCl (Thiamine Hcl 100 Mg Tablet) 100 mg PO DAILY [facility] Last Admin: 01/04/25 09:18 Dose: 100 mg Documented By: FLEX Labs 01/04/25 09:47 01/04/25 09:47 Labs: Laboratory Results - last 24 hr 01/03/25 01/04/25 01/04/25 20:41 07:19 09:47 MCV 100.5 H MCH 34.0 H MCHC 33.8 RDW 13.5 Plt Count 137 L MPV 9.1 L Absolute Nucleated RBC 0.000 Nucleated RBC % (auto) 0.0 Anion Gap 10 L Estim Creat Clear Calc 158.3 Estimated GFR > 60 POC Glucose 220 H 158 H Random Glucose 182 H Calcium 9.1 01/04/25 01/04/25 11:06 16:02 MCV MCH MCHC RDW Plt Count MPV Absolute Nucleated RBC Nucleated RBC % (auto) Anion Gap Estim Creat Clear Calc Estimated GFR POC Glucose 167 H 144 H Random Glucose Calcium Assessment and Plan (1) Fall down stairs: Status: Acute Plan This is a 64-year-old male with pertinent history of ith-nqhcfdy-qtpdbdgdg diabetes mellitus, hypertension, mixed hyperlipidemia, alcohol use disorder, atrial fibrillation not on anticoagulation, noncompliant with medications who presents to the emergency department for evaluation after a fall. Intractable extremity pain due to mechanical fall: all imaging negative seen by Physical therapy - rec home with services -unfortunately does not have PCP, unable to set up home services Continue as needed pain medication Possible pneumonia Patient reporting left rib pain, no fractures on imaging but possible pneumonia seen No sepsis We will start IV ceftriaxone, doxycycline Alcohol use disorder: No history or concern of alcohol withdrawal as per the patient. CIWA remains low, does not appear to be in alcohol withdrawal Initiating thiamine. Addiction Team consult-patient declines services Acute lactic acidosis due to alcohol use. No sepsis Hypertension: Previously on antihypertensives, resumed on metoprolol Monitor blood pressure Mixed hyperlipidemia: Stopped taking statin Atrial fibrillation with rapid ventricular response Was previously on anticoagulation. Chads Vasc score 3. - will hold off on initiating anticoagulation due to posterior scalp hematoma, daily etoh use and unsteady gait, admission for fall Resumed on metoprolol, heart rate improved Duj-ngqfbfu-ksvuqmhwf diabetes mellitus: Patient states he was on Mounjaro and other non-insulin antihyperglycemics (does not remember) until he lost his insurance A1c 6.6 Initiating Accu-Cheks with sliding scale insulin Super morbid Obesity: BMI 51.9 Counseled regarding diet and exercise Quality Stroke Does the patient have a stroke diagnosis?: No VTE Prior VTE?: No VTE Risk Level:: Medical - moderate - high VTE Device Contraindication: N/A - Device Ordered VTE Drug Contraindication: Treatment Not Indicated
[2025-01-04] MEDS: cefTRIAXone sodium 1 GM VIAL IVPUSH (18:16)
[2025-01-04] MEDS: Doxycycline Hyclate 100 MG in 0.9 % Sodium Chloride 250 ML 166.67 MG IV (18:16)
[2025-01-04] MEDS: Cyclobenzaprine HCl 10 MG TABLET PO (20:27)
[2025-01-04] MEDS: Docusate Sodium 100 MG CAPSULE 200 MG PO (20:28)
[2025-01-04 20:59] LABS: Glucose, Whole Blood 159 mg/dL (60-115)
--- NOTE | 2025-01-04 23:20 | PC.NURSE ---
Patient requesting to sleep in the recliner, patient declining chair alarm. Educated patient on safety precautions. Patient utilizing call sandoval appropriately. Educated patient to use callbell for assistance.
[2025-01-05 03:30] VITALS: BP 144/72; PULSE 90; RESP 16; TEMP 36; O2SAT 94
[2025-01-05 06:27] LABS: Glucose, Whole Blood 128 mg/dL (60-115)
[2025-01-05] MEDS: oxyCODONE HCl Immed Release 5 MG TABLET PO ×2 (06:39→11:10)
[2025-01-05] MEDS: Doxycycline Hyclate 100 MG in 0.9 % Sodium Chloride 250 ML 166.67 MG IV (06:40)
[2025-01-05 07:13] VITALS: BP 146/95; PULSE 94; RESP 16; TEMP 36.4; O2SAT 97
[2025-01-05 07:34] LABS: Glucose, Whole Blood 136 mg/dL (60-115)
[2025-01-05] MEDS: Thiamine HCL 100 MG TABLET PO (07:49)
[2025-01-05] MEDS: Folic Acid 1 MG TABLET PO (07:49)
[2025-01-05] MEDS: 0.9 % Sodium Chloride Flush 3 ML SYRINGE IVFLUSH (07:49)
[2025-01-05] MEDS: Metoprolol Succinate ER 25 MG TAB.ER.24H PO (07:49)
--- NOTE | 2025-01-05 10:34 | P.DS_ITS ---
DS: Providers Provider Date of Service: 01/05/25 Date of admission: 01/03/25 05:48 Date of discharge: 01/05/25 Primary care physician: Jyoti Hamilton CNP Consults: 01/03/25 05:47 Addiction Medicine Provider Routine Consulting Provider: Addiction Covering Reason for consultation: alcohol use disorder Attending physician on discharge: Jayne Cordova Discharging clinician: Sujatha Liu DS: Diagnosis Discharge Diagnosis (1) Fall down stairs: Status: Acute DS: Summary Hospital Course Hospital Course: From H&P on the day of admission This is a 64-year-old male with pertinent history of xqv-vuoqoxp-lkakgufph diabetes mellitus, hypertension, mixed hyperlipidemia, alcohol use disorder, atrial fibrillation not on anticoagulation, noncompliant with medications who presents to the emergency department for evaluation after a fall. Patient states he missed a step and fell down a spiral staircase. Did not lose consciousness prior to the fall. No chest pain or palpitations prior to the fall. No dizziness or lightheadedness prior to the fall. No rhythmic jerking movement of extremities. Patient hit his head, chest and lower extremity due to the fall. Is reporting right ankle and left knee pain since the fall. States his pbzuccy-op-tto use disorder cut off the stairway in order to get him out. Patient unable to stand due to lower extremity pain since the fall. Admits to drinking vodka every day but no history of alcohol withdrawal. Patient states he stopped taking his prescription home medications once he lost insurance. Patient was self paying for his insurance and missed a payment. Patient previously was on simvastatin, antihypertensives, anticoagulation for AFib, Mounjaro and other non-insulin antihyperglycemics (which he does not remember) for diabetes. Currently he is not taking any prescription home medications. Denies fever, chills, palpitations, shortness of breath, abdominal pain, changes in urinary or bowel habits. In the emergency department, imaging without acute fracture or osseous injury. Intractable extremity pain due to mechanical fall: all imaging negative. seen by Physical therapy - rec home with services - unfortunately does not have PCP, unable to set up home services. Has not required any IV pain medication overnight. Is able to ambulate independently Possible pneumonia Patient reporting left rib pain, no fractures on imaging but possible pneumonia seen. No fever, no white count patient does report dry cough. Initially treated with IV ceftriaxone, doxycycline, we will be discharged home to complete 5 day course of antibiotic Alcohol use disorder: Monitored on CIWA score, remained low, no evidence of acute alcohol withdrawal. Seen by the Addiction Team he declined any services or resources Acute lactic acidosis due to alcohol use. No sepsis Hypertension: Previously on antihypertensives, resumed on metoprolol. will need to reestablish with a PCP, we will need further outpatient monitoring Atrial fibrillation with rapid ventricular response. asymptomatic. Was previously on anticoagulation. Chads Vasc score 3. - will hold off on initiating anticoagulation due to, daily etoh use and unsteady gait, admission for fall. Resumed on metoprolol, heart rate improved. Recommend outpatient follow-up with Cardiology, recommend to reestablish with PCP. Qkx-bzlwgfn-athepjfpb diabetes mellitus: Patient states he was on Mounjaro and other non-insulin antihyperglycemics (does not remember) until he lost his insurance. Has no filled in several years. A1c 6.6. Needs outpatient follow-up with provider who can monitor his medications, blood sugar. Patient declined glucometer, testing strips stating he has never tested his blood sugar before and wont start now. Time Attestation Discharge Coordination Time (in mins): 35 Quality: Safe Use of Opioids Does Pt have an Active Cancer Diagnosis on the Problem List?: No Quality: Stroke Does the patient have a stroke diagnosis?: No Physical Exam Vital Signs: Vital Signs: Last Vital Signs Temp 97.5 F 01/05/25 07:13 Pulse 94 01/05/25 07:13 Resp 16 01/05/25 07:13 BP 146/95 H 01/05/25 07:13 Pulse Ox 97 01/05/25 07:13 O2 Del Method Room Air 01/05/25 07:13 BMI result Body Mass Index 51.5 Const: General: alert and awake Nutritional Appearance: obese Orientation/consciousness: patient oriented x3 Resp: Effort & Inspection: normal respiratory effort, able to speak in complete sentences, no respiratory distress and no use of accessory muscles Cardio: Rate: regular rate GI: Inspection: No distended Palpation (GI): Soft to palpation Neuro: General: patient oriented x3, moves all extremities and CN's II-XI intact bilaterally DS: Data Data Completed and Pending Labs on day of discharge: Laboratory Results - last 24 hr 01/04/25 01/04/25 01/04/25 11:06 16:02 20:55 POC Glucose 167 H 144 H 159 H 01/05/25 01/05/25 06:23 07:17 POC Glucose 128 H 136 H Discharge Plan Discharge Anticipated Discharge Date/Time: 01/05/25 10:41 Patient Disposition: Home, Self-Care Discharge Diagnosis: Atrial fibrillation Hypertension Type 2 diabetes Alcohol use Fall Referrals: Jyoti Hamilton CNP [Primary Care Provider] - 1 Week Discharge Medications: New cefuroxime axetil 500 mg tablet 500 mg PO Q12H 4 Days Qty: 8 0RF doxycycline monohydrate 100 mg tablet 100 mg PO BID 4 Days Qty: 8 0RF metoprolol succinate 25 mg Tablet Extended Release 24 Hr 25 mg PO DAILY 90 Days Qty: 90 0RF Protocol: Hold for SBP/HR < HOLD for SBP < : 90 HOLD for HR < : 60 oxycodone 5 mg Tablet 5 mg PO Q6H Qty: 20 0RF Rx Instructions: Partial Fill upon patient request. folic acid 1 mg Tablet 1 mg PO DAILY Qty: 90 0RF thiamine mononitrate (vit B1) 100 mg Tablet 100 mg PO DAILY Qty: 90 0RF Discharge Orders: Discharge Order (Routine); Ordered 01/05/25 Ordered By: Sujatha Liu Diet: Diabetic diet Activity on Discharge: As tolerated Stand Alone Forms: Patient Portal Discharge page Print Language: Lithuanian Care Plan Goals: See below Health Concerns: Mechanical fall Alcohol use High blood pressure Type 2 diabetes Atrial fibrillation Pneumonia Plan of Treatment: Recommend diabetic diet. Recommend obtain PCP for close monitoring of chronic medical conditions Take metoprolol as prescribed control heart rate and blood pressure Complete course of antibiotics as prescribed for possible pneumonia Do not mix narcotics with alcohol Assessment: See discharge summary
[2025-01-05 10:57] LABS: Glucose, Whole Blood 177 mg/dL (60-115)
--- NOTE | 2025-01-05 10:59 | MHC.CM.PN ---
Patient has been medically cleared for dc to home today, self care.
[2025-01-05] MEDS: Milk of Magnesia 30 ML ORAL.SUSP PO (11:10)
[2025-01-05] MEDS: Insulin Lispro 100 UNIT/ML 3 ML VIAL SUBCUT (11:11)
[2025-01-05 11:37] VITALS: BP 149/85; PULSE 88; RESP 16; TEMP 36.6; O2SAT 98
== END 2025-01-05 12:29 | disposition home or self-care (01) ==
LOC: HO.ED 01-03 05:24 → HO.EDOVER 01-03 06:02 → HO.IMC 01-03 18:03
PROVIDERS: Admitting Provider Student in an Organized Health Care Education/Training Program; Emergency Provider Emergency Medicine Emergency Medical Services; PCP Nurse Practitioner Primary Care; Visit Provider Physician Assistant Medical
DX: I48.20 Chronic atrial fibrillation, unspecified (principal); I10 Essential (primary) hypertension; E11.9 Type 2 diabetes mellitus without complications; F10.90 Alcohol use, unspecified, uncomplicated; Y90.7 Blood alcohol level of 200-239 mg/100 ml; R05.9 Cough, unspecified; S80.11XA Contusion of right lower leg, initial encounter; S80.12XA Contusion of left lower leg, initial encounter; S09.90XA Unspecified injury of head, initial encounter; S30.0XXA Contusion of lower back and pelvis, initial encounter; W10.8XXA Fall (on) (from) other stairs and steps, initial encounter; Y93.9 Activity, unspecified; Y92.9 Unspecified place or not applicable; Y99.9 Unspecified external cause status; E78.2 Mixed hyperlipidemia; E87.20 Acidosis, unspecified; E66.01 Morbid (severe) obesity due to excess calories; R00.0 Tachycardia, unspecified; R07.81 Pleurodynia; Z68.43 Body mass index [BMI] 50.0-59.9, adult; Z23 Encounter for immunization
CPT/HCPCS: 36415; 70450; 71045; 71101; 72125; 73562; 73590; 73620; 80048; 80053; 80307; 81003; 82550; 82947; 83036; 83605; 83690; 83735; 85025; 85027; 85730; 90471; 90715; 93005; 96361; 96365; 96366; 96367; 96375; 96376; 97116; 97162; 99222; 99285; J0696; J1171; J1271; J2270; J2405; J3411

== ENCOUNTER → 2025-01-02 21:26 | Outpatient (BNV) | payer OTHER, SELFPAY | PROVIDERS: Admitting Provider Student in an Organized Health Care Education/Training Program; Emergency Provider Emergency Medicine Emergency Medical Services; PCP Nurse Practitioner Primary Care; Visit Provider Internal Medicine Cardiovascular Disease | DX: I48.91 Unspecified atrial fibrillation (principal); I45.10 Unspecified right bundle-branch block | CPT/HCPCS: 93010 ==

== ENCOUNTER → 2025-01-02 21:42 | Outpatient (BNV) | payer OTHER, SELFPAY | PROVIDERS: Emergency Provider Emergency Medicine Emergency Medical Services; PCP Nurse Practitioner Primary Care; Visit Provider Radiology Diagnostic Radiology | DX: M54.2 Cervicalgia (principal); S00.03XA Contusion of scalp, initial encounter; M25.562 Pain in left knee; I51.7 Cardiomegaly; M79.671 Pain in right foot; M25.561 Pain in right knee; W10.8XXA Fall (on) (from) other stairs and steps, initial encounter | CPT/HCPCS: 70450; 71045; 72125; 73562; 73590; 73620 ==

== ENCOUNTER 2025-01-03 05:48 | Outpatient (BNV) | payer OTHER, SELFPAY | END 2025-01-04 13:00 | PROVIDERS: Admitting Provider Student in an Organized Health Care Education/Training Program; Emergency Provider Emergency Medicine Emergency Medical Services; PCP Nurse Practitioner Primary Care; Visit Provider Radiology Diagnostic Radiology | DX: R07.89 Other chest pain (principal); W19.XXXA Unspecified fall, initial encounter | CPT/HCPCS: 71101 ==

== ENCOUNTER → 2025-01-03 05:48 | Outpatient (BNV) | payer OTHER, SELFPAY | PROVIDERS: Admitting Provider Student in an Organized Health Care Education/Training Program; Emergency Provider Emergency Medicine Emergency Medical Services; PCP Nurse Practitioner Primary Care; Visit Provider Student in an Organized Health Care Education/Training Program | DX: R07.2 Precordial pain (principal); W10.8XXA Fall (on) (from) other stairs and steps, initial encounter | CPT/HCPCS: 99223; 99232; 99239; 99499 ==

== ENCOUNTER → 2025-01-03 05:48 | Outpatient (BNV) | payer OTHER, SELFPAY | PROVIDERS: Admitting Provider Student in an Organized Health Care Education/Training Program; Emergency Provider Emergency Medicine Emergency Medical Services; PCP Nurse Practitioner Primary Care; Visit Provider Nurse Practitioner Psychiatric/Mental Health | DX: F10.90 Alcohol use, unspecified, uncomplicated (principal) | CPT/HCPCS: 99221; 99499 ==

== ENCOUNTER 2025-04-19 12:32 | Emergency (ER) | payer OTHER, SELFPAY ==
[2025-04-19] VITALS (12 sets, daily range): BP systolic 94–154; BP diastolic 51–98; PULSE 115–141; RESP 18–220; TEMP 38.6–40; O2SAT 90–97; BMI 49.4
--- NOTE | ~2025-04-19 | CT_ITS ---
CLINICAL HISTORY: fall CT Brain without contrast Comparison: CT/SR - CT HEAD/BRAIN WO IV CON - 01/02/25 21:58 EDT FINDINGS: Cortical sulci: There is diffuse prominence of the cortical sulci compatible with age-related atrophy. Ventricles: Normal for age Brain parenchyma: There is patchy lucency throughout the deep white matter indicating chronic microvascular leukomalacia. Extra axial spaces: Normal Posterior Fossa: Normal Extracranial soft tissues: Normal Additional abnormality: None IMPRESSION: Age-related atrophy with chronic microvascular leukomalacia. No hemorrhage, mass effect, or acute findings identified. This document has been electronically signed by: Aditya Gomez MD on 04/19/2025 19:15:17
--- NOTE | ~2025-04-19 | CT_ITS ---
CLINICAL HISTORY: fall, dyspnea CT chest without contrast Comparison: None provided Findings: The heart size is normal. Right-sided central line. Atherosclerosis calcification of the coronary arteries. The visualized thyroid and mediastinum are unremarkable. There is a masslike area of the left upper lobe posteriorly 3 x 4.6 cm in size series 5, image 40. The upper abdomen is unremarkable. Degenerative changes of the spine. Curvilinear lucency of the left side of T12 vertebral body. Curvilinear horizontal lucency of the T11 vertebral body involving at least 2 column. IMPRESSION: Chance type fracture involving the T11 and T12 vertebral body. The fracture in the T11 involving at least 2 column is likely to be unstable. Further evaluation by MRI is recommended. There is a masslike lesion in the left upper lobe. Clinical correlation is recommended. Further evaluation by PET-CT as indicated. This document has been electronically signed by: Aditya Gomez MD on 04/19/2025 19:47:54
--- NOTE | ~2025-04-19 | XR_ITS ---
EXAMINATION: XR CHEST 1 VIEW HISTORY: s/p central line COMPARISON: Comparison is made with the prior examination performed earlier in the day. FINDINGS: A single AP portable view of the chest performed at 2:07 PM is submitted. The lung bases and the lateral aspect of the left hemithorax are excluded. There has been interval placement of a right internal jugular central venous catheter with its tip in the superior vena cava. There is no pneumothorax. The previously seen left apical opacity is less well visualized. The heart is normal in size. The bones are intact. XR/XR chest 1V IMPRESSION: 1. Right internal jugular central venous catheter tip in the superior vena cava. No pneumothorax. 2. The previously seen left apical opacity is less well visualized. Electronically signed by: Reinaldo Hernández MD 04/19/2025 02:24 PM EDT
--- NOTE | ~2025-04-19 | XR_ITS ---
EXAMINATION: XR CHEST 1 VIEW HISTORY: dyspnea COMPARISON: There is an is made with the prior examination dated 01/04/2025. FINDINGS: Two AP portable views of the chest performed at 1:28 PM are submitted. Again seen is a mass at the left lung apex. The right lung is clear. There is no pleural effusion, pneumothorax, or pulmonary vascular congestion. The heart remains enlarged. There is degenerative disc disease of the spine. XR/XR chest 1V IMPRESSION: Left apical lung mass as seen previously. Further evaluation with chest CT is recommended if this has not already been performed at an outside institution. Electronically signed by: Reinaldo Hernández MD 04/19/2025 01:59 PM EDT
--- NOTE | ~2025-04-19 | CT_ITS ---
CLINICAL HISTORY: fall CT cervical spine without contrast Comparison: CT/SR - CT CERVICAL SPINE WO IV CON - 01/02/25 21:58 EDT Findings: Normal vertebral body alignment. There is degenerative change. No acute fractures or dislocations. Visualized intracranial contents are unremarkable. No cervical fluid collections or masses. IMPRESSION: No acute findings. This document has been electronically signed by: Aditya Gomez MD on 04/19/2025 19:18:55
--- NOTE | ~2025-04-19 | XR_ITS ---
EXAMINATION: XR SHOULDER 2 OR MORE VIEWS RIGHT HISTORY: pain R shoulder, fall COMPARISON: There are no prior studies available for comparison. FINDINGS: Two views of the right shoulder are submitted. Osseous mineralization is normal. There is no fracture or dislocation. There is mild to moderate osteoarthritis of the AC joint, with joint space narrowing and osteophyte formation. There is mild degenerative change of the glenohumeral joint. The humeral head appears high riding, suggestive of rotator cuff disease. The soft tissues are unremarkable. XR/XR shoulder RT min 2V IMPRESSION: Degenerative changes of the right shoulder as described. High riding humeral head, suggestive of rotator cuff disease. Electronically signed by: Reinaldo Hernández MD 04/19/2025 02:00 PM EDT
--- NOTE | ~2025-04-19 | CT_ITS ---
CLINICAL HISTORY: fall abd tenderness CT abdomen and pelvis without contrast Comparison: None Findings: Examination is limited by without contrast. Lung bases are clear. No pleural effusion. Liver, Pancreas, Spleen show normal size, shape and attenuation on present unenhanced scan. No CBD dilatation. Mild nodular thickening of the bilateral adrenal gland. No calcified gallstone in the gallbladder. Both kidneys reveal normal in size, shape, position and attenuation. No kidney stone. No hydronephrosis. The IVC, aorta and portal vein are within normal position and caliber. No evidence of retroperitoneal lymphadenopathy or ascites. The visible parts of the bowel loops show no obvious mass lesions or wall thickening. Colonic diverticulosis. Appendix appears normal. Bladder is decompressed by Gagnon catheter. The pelvic organs are unremarkable. Degenerative changes of the lumbar spine. IMPRESSION: No evidence of acute traumatic injury. Chronic findings as above. This document has been electronically signed by: Aditya Gomez MD on 04/19/2025 19:33:34
--- NOTE | 2025-04-19 12:40 | ECG_ITS ---
Test Reason : tachycardic Blood Pressure : */* mmHG Vent. Rate : 130 BPM Atrial Rate : * BPM P-R Int : * ms QRS Dur : 106 ms QT Int : 330 ms P-R-T Axes : * 265 37 degrees QTcB Int : 485 ms Atrial fibrillation with rapid ventricular response Incomplete right bundle branch block Inferior infarct (cited on or before 02-Jan-2025) Possible Anterolateral infarct , age undetermined Abnormal ECG When compared with ECG of 02-Jan-2025 21:31, Borderline criteria for Anterior infarct are now Present Borderline criteria for Anterolateral infarct are now Present T wave amplitude has increased in Anterior leads Referred By: Jose Luis Sánchez Electronically Signed By: Warner Brito
--- NOTE | 2025-04-19 12:45 | ED.TRAUMA ---
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 Estimated GFR POC Glucose 168 H 199 H (60-115) mg/dL Random Glucose (60-115) mg/dL Estimat Average Glucose mg/dL Hemoglobin A1c % (<6.0) % Lactic Acid (0.5-2.0) mmol/L Lactic Acid F/U @ 2Hr (0.5-2.0) mmol/L Lactic Acid F/U @ 4Hr (0.5-2.0) mmol/L Calcium (8.4-10.2) mg/dL Magnesium (1.6-2.6) mg/dL Total Bilirubin (0.0-1.0) mg/dL AST (5-37) U/L ALT (0-40) U/L Alkaline Phosphatase (39-117) U/L Total Creatine Kinase (38-174) U/L Troponin I High Sens (<3.5-35.0) ng/L B-Natriuretic Peptide (<100) pg/mL Total Protein (6.5-8.0) g/dL Albumin (3.5-5.0) g/dL Beta-Hydroxybutyrate (0.02-0.27) mmol/L Procalcitonin ng/mL TSH (0.32-4.0) uIU/mL Urine Color Urine Appearance Urine pH (5.0-9.0) Ur Specific [place] (1.005-1.025) Urine Protein (Neg-Trace) mg/dL Urine Glucose (UA) (Negative) mg/dL Urine Ketones (Negative) mg/dL Urine Blood (Negative) Urine Nitrite (Negative) Ur Leukocyte Esterase (Negative) Urine RBC (0-2) /HPF Urine WBC (0-5) /HPF Ur Squamous Epith Cells (0-2) /HPF Urine Bacteria (None Seen) Hyaline Casts (0-2) /LPF Granular Casts WBC Casts Urine Opiates Screen (Not Detect) Ur Buprenorphine Scrn (Not Detect) ng/mL Ur Oxycodone Screen (Not Detect) ng/mL Urine Methadone Screen (Not Detect) ng/mL Urine Fentanyl Screen (Not Detect) Ur Barbiturates Screen (Not Detect) Ur Phencyclidine Scrn (Not Detect) Ur Amphetamines Screen (Not Detect) U Benzodiazepines Scrn (Not Detect) Urine Cocaine Screen (Not Detect) U Marijuana (THC) Screen (Not Detect) Ethyl Alcohol mg/dL Influenza Type A (PCR) (Negative) Influenza Type B (PCR) (Negative) RSV RNA Qual (PCR) (Negative) SARS-CoV-2 RNA (RT-PCR) (Negative) 04/19/25 Range/Units 20:02 WBC (4.8-10.8) X10*3/uL RBC (4.60-5.80) X10*6/uL Hgb (14.0-18.0) g/dl Hct (42.0-52.0) % MCV (80.0-98.0) fL MCH (27.0-33.0) pg MCHC (31.0-36.0) g/dl RDW (11.0-16.0) % Plt Count (160-400) X10*3/uL MPV (9.4-12.4) fL Immature Gran % (Auto) (0.0-0.4) % Neut % (Auto) (45-73) % Lymph % (Auto) (20-40) % [place] % (Auto) (2-11) % Eos % (Auto) (0-4) % Baso % (Auto) (0-2) % Lymph # (Auto) (1.2-4.9) X10*3/uL [place] # (Auto) (0.1-1.2) X10*3/uL Eos # (Auto) (0.0-0.4) X10*3/uL Baso # (Auto) (0.0-0.2) X10*3/uL Abs Immat Gran (auto) (0.00-0.03) X10*3/uL Absolute Neuts (auto) (2.0-8.3) x10*3/uL Absolute Nucleated RBC (0.0-0.012) X10*3/uL Nucleated RBC % (auto) (0.0-0.2) /100WBC VBG pH (7.32-7.43) VBG pCO2 mmHg VBG pO2 mmHg VBG HCO3 (22-26) mmol/L VBG O2 Saturation % VBG Base Excess mmol/L Sodium (135-145) mmol/L Potassium (3.3-5.1) mmol/L Chloride (96-108) mmol/L Carbon Dioxide (22-29) mmol/L Anion Gap (12-20) BUN (9-16) mg/dL Creatinine (0.5-1.4) mg/dL Estim Creat Clear Calc Estimated GFR POC Glucose (60-115) mg/dL Random Glucose (60-115) mg/dL Estimat Average Glucose mg/dL Hemoglobin A1c % (<6.0) % Lactic Acid (0.5-2.0) mmol/L Lactic Acid F/U @ 2Hr (0.5-2.0) mmol/L Lactic Acid F/U @ 4Hr 2.8 H* (0.5-2.0) mmol/L Calcium (8.4-10.2) mg/dL Magnesium (1.6-2.6) mg/dL Total Bilirubin (0.0-1.0) mg/dL AST (5-37) U/L ALT (0-40) U/L Alkaline Phosphatase (39-117) U/L Total Creatine Kinase (38-174) U/L Troponin I High Sens (<3.5-35.0) ng/L B-Natriuretic Peptide (<100) pg/mL Total Protein (6.5-8.0) g/dL Albumin (3.5-5.0) g/dL Beta-Hydroxybutyrate (0.02-0.27) mmol/L Procalcitonin ng/mL TSH (0.32-4.0) uIU/mL Urine Color Urine Appearance Urine pH (5.0-9.0) Ur Specific [place] (1.005-1.025) Urine Protein (Neg-Trace) mg/dL Urine Glucose (UA) (Negative) mg/dL Urine Ketones (Negative) mg/dL Urine Blood (Negative) Urine Nitrite (Negative) Ur Leukocyte Esterase (Negative) Urine RBC (0-2) /HPF Urine WBC (0-5) /HPF Ur Squamous Epith Cells (0-2) /HPF Urine Bacteria (None Seen) Hyaline Casts (0-2) /LPF Granular Casts WBC Casts Urine Opiates Screen (Not Detect) Ur Buprenorphine Scrn (Not Detect) ng/mL Ur Oxycodone Screen (Not Detect) ng/mL Urine Methadone Screen (Not Detect) ng/mL Urine Fentanyl Screen (Not Detect) Ur Barbiturates Screen (Not Detect) Ur Phencyclidine Scrn (Not Detect) Ur Amphetamines Screen (Not Detect) U Benzodiazepines Scrn (Not Detect) Urine Cocaine Screen (Not Detect) U Marijuana (THC) Screen (Not Detect) Ethyl Alcohol mg/dL Influenza Type A (PCR) (Negative) Influenza Type B (PCR) (Negative) RSV RNA Qual (PCR) (Negative) SARS-CoV-2 RNA (RT-PCR) (Negative) Independent Interpretation I performed an independent interpretation of an: EKG (Sinus tachy, peaked T waves no acute ischemia) Critical Care Time Critical Care Time Critical Care Time: Yes Total Critical Care Time: 120 Attestation: ED Critical Care: Authorized and Performed by: Jose Luis Sánchez MD Total critical care time: [id number] Due to a high probability of clinically significant, life threatening deterioration, the patient required my highest level of preparedness to intervene emergently and I personally spent this critical care time directly and personally managing the patient. This critical care time included obtaining a history; examining the patient; pulse oximetry; ordering and review of studies; arranging urgent treatment with development of a management plan; evaluation of patient's response to treatment; frequent reassessment; and, discussions with other providers. This critical care time was performed to assess and manage the high probability of imminent, life-threatening deterioration that could result in multi-organ failure. It was exclusive of separately billable procedures and treating other patients and teaching time. Discharge Plan Discharge Clinical Impression: WILLARD (acute kidney injury), Sepsis, Rhabdomyolysis, Closed fracture of T11 vertebra [facility] Details: Case discussed with Dr. Malinda Stack, transfer ED to ED category 2 trauma for unstable T11 fracture in the setting of sepsis rhabdomyolysis and WILLARD Prescriptions: No Action cefuroxime axetil 500 mg tablet 500 mg PO Q12H 4 Days Qty: 8 0RF doxycycline monohydrate 100 mg tablet 100 mg PO BID 4 Days Qty: 8 0RF metoprolol succinate 25 mg Tablet Extended Release 24 Hr 25 mg PO DAILY 90 Days Qty: 90 0RF Protocol: Hold for SBP/HR < HOLD for SBP < : 90 HOLD for HR < : 60 oxycodone 5 mg Tablet 5 mg PO Q6H Qty: 20 0RF Rx Instructions: Partial Fill upon patient request. folic acid 1 mg Tablet 1 mg PO DAILY Qty: 90 0RF thiamine mononitrate (vit B1) 100 mg Tablet 100 mg PO DAILY Qty: 90 0RF Interventions: Acute Care Transfer Worksheet (ED) Last Done: 04/20/25 03:10 Discharge Date/Time: 04/19/25 23:01 Print Language: Swedish
[2025-04-19 12:57] LABS: MANUAL DIFF FLAG NO
[2025-04-19 12:59] LABS: Hemoglobin 18.7 g/dl (14.0-18.0); Imm Gran Abs Auto 0.18 X10*3/uL (0.00-0.03); Imm Gran Pct Auto 0.9 % (0.0-0.4); Lymphocytes Absolute Auto 1.0 X10*3/uL (1.2-4.9); Mean Corpuscular HGB Conc 33.5 g/dl (31.0-36.0); Mean Corpuscular Hemoglobin 29.6 pg (27.0-33.0); Mean Corpuscular Volume 88.4 fL (80.0-98.0); NRBC Abs Auto 0.000 X10*3/uL (0.0-0.012); NRBC Pct Auto 0.0 /100WBC (0.0-0.2); Platelet Count 266 X10*3/uL (160-400); Red Blood Count 6.32 X10*6/uL (4.60-5.80); White Blood Count 19.5 X10*3/uL (4.8-10.8)
[2025-04-19 13:00] LABS: Hematocrit 55.9 % (42.0-52.0)
[2025-04-19 13:03] LABS: VBG HCO3 13 mmol/L (22-26); VBG O2 % Saturation 49.0 %
[2025-04-19 13:09] LABS: Venous Blood Gas Refer to POC result
[2025-04-19 13:20] LABS: Hemoglobin A1C 204.9163 umol/L; Total Hemoglobin (HGBA1C) 4675.5809 umol/L
[2025-04-19 13:20] LABS: B Type Natriuretic Peptide 404 pg/mL (<100)
[2025-04-19 13:22] LABS: Glucose, Whole Blood 224 mg/dL (60-115)
[2025-04-19 13:33] LABS: Alanine Aminotransferase 81 U/L (0-40); Albumin Level 4.4 g/dL (3.5-5.0); Alkaline Phosphatase 102 U/L (39-117); Anion Gap 27 (12-20); Aspartate Amino Transferase 387 U/L (5-37); Blood Urea Nitrogen 27 mg/dL (9-16); Calcium 9.3 mg/dL (8.4-10.2); Carbon Dioxide 14 mmol/L (22-29); Chloride 100 mmol/L (96-108); Creatinine Clr Calc Pharmacy 46.6; Estimated Glomerular Filt Rate 29; Magnesium 2.4 mg/dL (1.6-2.6); Potassium 5.9 mmol/L (3.3-5.1); Sodium 135 mmol/L (135-145); Total Protein 8.1 g/dL (6.5-8.0)
[2025-04-19] MEDS: Albuterol Sulfate (0.083%) 2.5 MG/3 ML VIAL.NEB 10 MG INHALE (13:33)
[2025-04-19 13:37] LABS: Troponin-I High Sensitivity 252.0 ng/L (<3.5-35.0)
[2025-04-19 13:39] LABS: Procalcitonin 1.88 ng/mL; Thyroid Stimulating Hormone 1.30 uIU/mL (0.32-4.0)
[2025-04-19] MEDS: Calcium Gluconate/NaCl,Iso-Osm 2 GM/100 ML PLAST..BAG IV (13:41)
[2025-04-19] MEDS: Thiamine HCL 200 MG in 0.9 % Sodium Chloride 100 ML 204 MG IV (14:06)
[2025-04-19 14:35] LABS: Appearance Urine Cloudy; Glucose Urine UA Negative (Negative); PH 6.5 (5.0-9.0); Specific Gravity - Urine 1.020 (1.005-1.025); UMIC TRIGGER UACC YES
[2025-04-19] MEDS: Lactated Ringers 1,000 ML 999 ML IV ×3 (14:36→17:12)
[2025-04-19] MEDS: Sodium Bicarbonate 8.4% 50 MEQ in Dextrose 5 % 950 ML 150 MEQ IV (14:43)
[2025-04-19 14:46] LABS: Cannabinoid Screen Urine Not Detected (Not Detect)
[2025-04-19] MEDS: Insulin Regular/NS 100 UNIT/100 ML PLAST..BAG 7 UNIT IVCONT (14:54)
[2025-04-19 14:55] LABS: UACC Culture Trigger YES
[2025-04-19 15:04] LABS: Glucose, Whole Blood 176 mg/dL (60-115)
[2025-04-19 15:08] LABS: Reflex Lactate? Lactic Acid Added
[2025-04-19] MEDS: vancomycin/NS 2,000 MG/500 ML PLAST..BAG 250 MG IV (15:32)
[2025-04-19 16:01] LABS: Glucose, Whole Blood 193 mg/dL (60-115)
[2025-04-19 16:17] LABS: VBG HCO3 14 mmol/L (22-26); VBG O2 % Saturation 87.0 %
[2025-04-19 16:17] LABS: Venous Blood Gas Refer to POC result
--- NOTE | 2025-04-19 16:21 | PC.NURSE ---
Pt's IVF's infusing per Dr Gonzalez's orders: 1 liter NS initially until central line to R IJ established by MD/verified by xray; then 2 liters LR based on ideal body weight of 70kg, rather than actual body weight of 151kg; refer to Dr Head's note; pt's vs remain elevated at this time; MD aware; pt c/o severe back pain; pt remains febrile after IV APAP gv; ice packs applied to posterior neck, bilateral axillae and bilateral groins; pt's pallor has improved, with no more mottling to periphery noted and nail beds with cap refill of 4 seconds (previously dusky with sluggish cap refill); repeat BG 193 so insulin drip remains unchanged at this time per algorithm; will cont to monitor/tx per orders
[2025-04-19 16:33] LABS: Anion Gap 19 (12-20); Blood Urea Nitrogen 30 mg/dL (9-16); Calcium 8.4 mg/dL (8.4-10.2); Carbon Dioxide 16 mmol/L (22-29); Chloride 105 mmol/L (96-108); Creatinine Clr Calc Pharmacy 46.9; Estimated Glomerular Filt Rate 29; Potassium 4.3 mmol/L (3.3-5.1); Sodium 136 mmol/L (135-145)
[2025-04-19 16:43] LABS: ~Lactic Acid-LAB USE ONLY 5.1 mmol/L (0.5-2.0)
[2025-04-19 16:49] LABS: Resp Syncy Virus RNA Qual PCR NEGATIVE (Negative); SARS COV2 PCR INHOUSE NEGATIVE (Negative)
--- NOTE | 2025-04-19 17:16 | PC.NURSE ---
Per Dr Head, pt's insulin and bicarb drips paused secondary to closing anion gap; another 1 liter of LR ordered/infusing; pt reports better pain control to lower back with Dilaudid than Fentanyl; pt able to speak full sentences at this time; will cont to monitor/tx per orders
[2025-04-19 17:23] LABS: Glucose, Whole Blood 168 mg/dL (60-115)
[2025-04-19 18:09] LABS: Reflex Lactate? 2 Y
[2025-04-19 19:13] LABS: Glucose, Whole Blood 199 mg/dL (60-115)
--- NOTE | 2025-04-19 20:12 | MHC.EDTECH ---
This smoke chaser applied ice packs under patient's arms, behind his neck, and on groin area. His temp is 102.0
[2025-04-19 20:39] LABS: ~Lactic Acid-LAB USE ONLY 2.8 mmol/L (0.5-2.0)
[2025-04-20 03:10] VITALS: BP 94/51; PULSE 119; RESP 24; TEMP 39; O2SAT 96
--- NOTE | 2025-04-20 03:15 | PC.NURSE ---
Late documentation. T/w assumed care of pt 04/19/25 at 1900, bed side report completed. Pt reconnected to Vancomycin by previous RN Mable at that time. No other fluids running, insulin and Bicarb gtt d/c'd per provider and communication order prior to assumption of care. all sepsis protocol fluids, abx and documentation completed prior to assumption of care. Pt is alert and oriented X3, cold packs applied to pt d/t core temp from temp sensing fley 101.7, Tachy 110's-120's afib, RR20's, 90-90% on 2L NC. Gagnon output 30ml/hr. Pt has weeping open blistering wounds to BLE and pressure ulcer to Right foot. Pt report 10/ pain, MD aware. Pt moving all extremities with minimal movement or capabilities to lift BLE. TLC R-IJ, all lines patent with positive blood return. #20 R-ac, patent. Imaging results showed T-11 fracture and decision to transfer to [facility] made by . Accepting MD Dr. Petty. Report given to Vlad ALLEN at [facility]. T/w called and spoke with patients to make her aware of transfer.
== END 2025-04-19 23:01 | disposition short-term general hospital (02) ==
PROVIDERS: Emergency Provider Emergency Medicine
DX: A41.9 Sepsis, unspecified organism (principal); E66.01 Morbid (severe) obesity due to excess calories; Z68.42 Body mass index [BMI] 45.0-49.9, adult; R65.20 Severe sepsis without septic shock; N17.9 Acute kidney failure, unspecified; E87.20 Acidosis, unspecified; E11.9 Type 2 diabetes mellitus without complications; M62.82 Rhabdomyolysis; E87.5 Hyperkalemia; S22.089A Unspecified fracture of T11-T12 vertebra, initial encounter for closed fracture; W06.XXXA Fall from bed, initial encounter; Y93.84 Activity, sleeping; Y92.092 Bedroom in other non-institutional residence as the place of occurrence of the external cause; Y99.8 Other external cause status; Z79.4 Long term (current) use of insulin; Z79.899 Other long term (current) drug therapy
CPT/HCPCS: 36415; 36556; 70450; 71045; 71250; 72125; 73030; 74176; 76604; 76705; 76937; 80048; 80053; 80307; 81001; 82010; 82550; 82803; 82947; 83036; 83605; 83735; 83880; 84145; 84443; 84484; 85025; 87040; 87086; 87637; 93005; 93308; 94640; 96361; 96365; 96366; 96367; 96368; 96375; 96376; 99285; 99291; 99292; J0131; J0613; J0696; J1171; J3010; J3373; J3411; J7120

== ENCOUNTER → 2025-04-19 12:40 | Outpatient (BNV) | payer OTHER, SELFPAY | PROVIDERS: Emergency Provider Emergency Medicine; Visit Provider Internal Medicine Cardiovascular Disease | DX: I48.91 Unspecified atrial fibrillation (principal); I45.10 Unspecified right bundle-branch block; I25.2 Old myocardial infarction | CPT/HCPCS: 93010 ==

== ENCOUNTER → 2025-04-19 13:15 | Outpatient (BNV) | payer OTHER, SELFPAY | PROVIDERS: Emergency Provider Emergency Medicine; Visit Provider Radiology Diagnostic Radiology | DX: R10.819 Abdominal tenderness, unspecified site (principal); R06.00 Dyspnea, unspecified; S22.089A Unspecified fracture of T11-T12 vertebra, initial encounter for closed fracture; Z04.3 Encounter for examination and observation following other accident; I67.82 Cerebral ischemia; M19.011 Primary osteoarthritis, right shoulder; M25.511 Pain in right shoulder; R91.8 Other nonspecific abnormal finding of lung field; Z45.2 Encounter for adjustment and management of vascular access device; G31.1 Senile degeneration of brain, not elsewhere classified; W19.XXXA Unspecified fall, initial encounter | CPT/HCPCS: 70450; 71045; 71250; 72125; 73030; 74176 ==